=== PATIENT | female | born 1945 | race Caucasian/White ===

== ENCOUNTER 2020-11-30 07:48 | Outpatient (CLI) | payer MEDICARE, SELFPAY ==
--- NOTE | ~2020-11-30 | MM_ITS ---
EXAMINATION: MM screening [facility] BI w matheus HISTORY: Screening mammogram TECHNIQUE: Craniocaudal and mediolateral oblique 3-D tomosynthesis images were obtained and synthetic 2-D images were generated. CAD analysis was submitted and interpreted. COMPARISON: 11/25/2019, 11/22/2018, 11/15/2017 BREAST PARENCHYMAL COMPOSITION: There are scattered areas of fibroglandular density. FINDINGS: There is no evidence of suspicious mass, calcification, or architectural distortion to sugg est malignancy in either breast. There has been no suspicious interval change. IMPRESSION: 1. No mammographic evidence of malignancy. 2. Recommend routine screening mammography in one year. BI-RADS Category 1: Negative Reviewed, dictated and finalized at location A. RT SPECIALIST
== END 2020-11-30 07:49 | disposition home or self-care (01) ==
LOC: CHSIMG 07:51
PROVIDERS: PCP Internal Medicine; Visit Provider Internal Medicine
DX: Z12.31 Encounter for screening mammogram for malignant neoplasm of breast (principal)
CPT/HCPCS: 77063; 77067

== ENCOUNTER 2020-12-25 11:18 | Outpatient (CLI) | payer MEDICARE, SELFPAY ==
--- NOTE | ~2020-12-25 | XR_ITS ---
EXAMINATION: XR hip RT min 2V DATE: 12/25/2020 11:38 INDICATION: Right hip pain. TECHNIQUE: 2 views of right hip were obtained. COMPARISON: Right hip radiographs 04/02/2018 FINDINGS: Bone alignment is normal. No fracture. There is advanced right hip osteoarthritis. IMPRESSION: 1. Advanced right hip osteoarthritis with interval worsening. Reviewed, dictated and finalized at location A. AURANT MGR
== END 2020-12-25 11:19 | disposition home or self-care (01) ==
LOC: CHSIMG 11:20
PROVIDERS: PCP Internal Medicine; Visit Provider Internal Medicine
DX: M25.551 Pain in right hip (principal)
CPT/HCPCS: 73502

== ENCOUNTER 2021-06-25 08:24 | Outpatient (CLI) | payer MEDICARE, SELFPAY ==
[2021-06-25 08:38] LABS: Add Urine Microscopic? NO; Appearance Urine Clear (Clear); Basophils Absolute Auto 0.09 K/mm3 (0.00-0.10); Basophils Percent Auto 1.1 % (0.0-1.0); Bilirubin Urine Negative (Negative); Blood Urine Negative (Negative); Color Urine Light Yellow (Yellow); Eosinophils Absolute Auto 0.17 K/mm3 (0.02-0.50); Eosinophils Percent Auto 2.1 % (1.0-6.0); Glucose Urine UA Negative (Negative); Hematocrit 39.1 % (35.0-42.0); Hemoglobin 11.8 g/dL (11.7-13.8); Immature Granulocyte Absolute 0.01 K/mm3 (0.00-0.00); Immature Granulocyte Percent A 0.1 % (0.0-0.0); Ketones Urine Negative (Negative); Leukocyte Esterase Ur Negative LEU/UL (Negative); Lymphocytes Absolute Auto 2.35 K/mm3 (1.10-4.50); Lymphocytes Percent Auto 28.6 % (18.0-42.0); Mean Corpuscular HGB Conc 30.2 g/dL (32.0-36.0); Mean Corpuscular Hemoglobin 26.2 pg (27.0-31.0); Mean Corpuscular Volume 86.9 fL (78.0-102.0); Mean Platelet Volume 9.4 fl (9.2-11.8); Neutrophils Absolute Auto 4.7 K/mm3 (1.7-7.2); Neutrophils Percent Auto 57.1 % (50.0-70.0); Nitrate Urine Negative (Negative); Platelet Count Result 378 K/mm3 (150-420); Protein Urine Negative (Negative); Red Cell Distribution Width 14.1 % (11.6-14.4); Specific Grav Ur 1.015 (1.010-1.020); Urobilinogen Urine 0.2 mg/dL (0.2-1.0); White Blood Count 8.2 K/mm3 (4.8-10.8); pH Urine 6.5 (5.0-8.0)
[2021-06-25 09:33] LABS: Alanine Aminotransferase 26 U/L (14-59); Albumin Level 4.1 g/dL (3.4-5.0); Alkaline Phosphatase 90 U/L (46-116); Anion Gap 10 mmol/L (8-16); Aspartate Amino Transferase 16 U/L (15-37); Bilirubin,Total 0.3 mg/dL (0.00-1.00); Blood Urea Nitrogen 18 mg/dL (7-18); Calcium 9.2 mg/dL (8.5-10.1); Carbon Dioxide 28 mmol/L (21-32); Chloride 106 mmol/L (98-108); Cholesterol 206 mg/dL (0-200); Creatine Kinase 112 U/L (26-192); Estimated Glomerular Filt Rate > 60; Free T4 Free Thyroxine 0.79 ng/dL (0.76-1.46); Glucose 97 mg/dL (70-99); HDL Direct 62 mg/dL (40-60); LDL Cholesterol Calculated 125 mg/dL (<130); Osmolality Calculated 299 mOsm/kg (285-295); Potassium 4.6 mmol/L (3.5-5.1); Sodium 144 mmol/L (136-145); Thyroid Stimulating Hormone 2.92 uIU/mL (0.36-3.74); Total Protein 6.9 g/dL (6.4-8.2); Triglycerides 94 mg/dL (0-150)
[2021-06-28 15:15] LABS: Vitamin D 25 Hydroxy 48 ng/mL (30-100)
== END 2021-06-25 08:25 | disposition home or self-care (01) ==
LOC: CHSLAB 08:25
PROVIDERS: PCP Internal Medicine; Visit Provider Internal Medicine
DX: E03.9 Hypothyroidism, unspecified (principal); E78.5 Hyperlipidemia, unspecified; M81.0 Age-related osteoporosis without current pathological fracture
CPT/HCPCS: 36415; 80053; 80061; 81003; 82306; 82550; 84439; 84443; 85025

== ENCOUNTER 2021-07-22 08:48 | Outpatient (CLI) | payer MEDICARE, SELFPAY ==
--- NOTE | ~2021-07-22 | DEXA_ITS ---
Bone Density Report Name: Seble Nunez I Age: 75 Sex: Female Ethnicity: White Date of : 1945 Indication: osteopenia; height loss; Referring Provider: Jonathan Carreon Study: Bone densitometry was performed. Exam Date: July 22, 2021 Accession number: [id number] Bone Density: Region BMD T-score Z-score Classification AP Spine(L1-L4) 0.854 -1.8 0.6 Osteopenia Femoral Neck (Left) 0.578 -2.4 -0.4 Osteopenia Total Hip (Left) 0.811 -1.1 0.7 Osteopenia World Health Organization criteria for BMD impression classify patients as: Normal (T-score at or above -1.0), Osteopenia (T-score between -1.0 and -2.5), or Osteoporosis (T-score at or below -2.5). 10-year Fracture Risk(1): Major Osteoporotic Fracture 15% Hip Fracture 4.5% Reported Risk Factors: [place] (), Neck BMD=0.578, BMI=25.4 (1) FRAX(R) Version 3.08. Fracture probability calculated for an untreated patient. Fracture probability may be lower if the patient has received treatment. Previous Exams: Region Exam Age BMD T-score BMD Change BMD Change Date g/cm2 vs Baseline vs Previous AP Spine (L1-L4) 07/22/2021 75 0.854 -1.8 -0.057 (-6.2%) -0.057 (-6.2%) 08/29/2011 65 0.911 -1.2 Total Hip(Left) 07/22/2021 75 0.811 -1.1 -0.034 (-4.1%) -0.034 (-4.1%) 08/29/2011 65 0.845 -0.8 *Denotes significance at 95% confidence level, LSC for AP Spine = 0.022 g/cm2, LSC for Total Hip = 0.027 g/cm2 # Denotes dissimilar scan types or analysis methods Clinical Information Provided by Patient: Has used the following medications: Vitamin D Patient maximum height was 61 No regular weight bearing exercise Drinks caffeinated beverages Onset of menses at age 13 Number of children 3 Impression: The patient has low bone mass, based on the Left Femoral Neck T-score. The patient has an estimated ten-year risk of hip fracture of 4.5% and an estimated ten-year risk of major fracture of 15%, based on the WHO FRAX algorithm. No significant bone loss was observed. Discussion: BONE DENSITY IS LOW AT ONE OR MORE SKELETAL SITES. THE PATIENT'S BMD AND CLINICAL RISK FACTORS CONTRIBUTE TO THIS PATIENT'S INCREASED RISK OF FRACTURE. This patient's lowest T-score is low at one or more skeletal sites. It meets the World Health Organization's (WHO) criteria for ?low bone mass? (T-score between -1.0 and -2.5). The patient's 10-year risk of hip fracture as calculated by FRAX exceeds the threshold where pharmacological therapy is recommended by the National Osteoporosis Foundation
== END 2021-07-22 08:49 | disposition home or self-care (01) ==
LOC: CHSIMG 08:49
PROVIDERS: PCP Internal Medicine; Visit Provider Internal Medicine
DX: M81.0 Age-related osteoporosis without current pathological fracture (principal)
CPT/HCPCS: 77080

== ENCOUNTER 2021-08-16 08:11 | Outpatient (CLI) | payer MEDICARE, SELFPAY ==
[2021-08-16 08:23] VITALS: BP 110/63; PULSE 65; RESP 14; TEMP 36.8; O2SAT 98
[2021-08-16] MEDS: ZOLEDRONIC ACID 5 MG/100 ML 100 ML 300 MG IVPB (08:25)
[2021-08-16 08:33] VITALS: BMI 25.9
--- NOTE | 2021-08-16 08:54 | PC.NURSE ---
Patient here for IV Reclast infusion. Medication education given. No concerns voiced. IV Reclast administered. Tolerated well. Safe exit of hospital.
== END 2021-08-16 08:12 | disposition home or self-care (01) ==
LOC: CHSTREATRM 08:14
PROVIDERS: PCP Internal Medicine; Visit Provider Internal Medicine
DX: M81.0 Age-related osteoporosis without current pathological fracture (principal)
CPT/HCPCS: 96365; J3489

== ENCOUNTER 2021-10-14 07:48 | Outpatient (RCR) | payer MEDICARE, SELFPAY ==
--- NOTE | 2021-10-14 11:07 | PTOPEVAL ---
Thank you for referring Seble Nunez to [facility].? The patient is scheduled to be seen for therapy? ____x/week for ___ weeks. Please review, sign, date and return this plan of care TERENCE. I agree with and certify that the following plan of care is medically necessary. Referring Physician Date Admitting Provider: Attending Provider: LISA TOSCANO Referring Provider: *PT Outpatient Evaluation Start: 10/14/21 06:59 Freq: Status: Active Protocol: Document 10/14/21 06:59 ACR (Rec: 10/14/21 07:59 ACR [id number]) Therapy Assessment Status Assessment Status Assessment Status Evaluation Evaluation Information Problem Diagnosis R trochanteric bursitis Onset 04/08/21 Subjective Information Patient reports that she got a Query Text:As Reported By Patient/ hip replacement on 04/08/21. Family She states that she went to her 6 month check up and noticed that she had some tenderness to the lateral hip and was diagnosed with bursitis. Patient reports that her hip replacement went well back in March and has just recently noticed the pain for the past 2 and a half weeks. Patient states that ascending steps is painful for her and descending is okay. She states that squatting down to pick something up is difficult and she is fearful of falling even though she has not had any falls. She states that she has been doing some heavier lifting is difficult for her as well. She reports that the pain is in her L buttock down to the front of the knee. Patient states that her goal for therapy is to function without having difficulting going up and down the steps. 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
--- NOTE | 2021-10-28 07:59 | PTOPEVAL ---
Thank you for referring Seble Nunez to [facility].? The patient is scheduled to be seen for therapy? ____x/week for ___ weeks. Please review, sign, date and return this plan of care TERENCE. I agree with and certify that the following plan of care is medically necessary. Referring Physician Date Admitting Provider: Attending Provider: LISA TOSCANO Referring Provider: *PT Outpatient Evaluation Start: 10/14/21 06:59 Freq: Status: Active Protocol: Document 10/28/21 07:05 ACR (Rec: 10/28/21 07:59 ACR [email or web address]) Therapy Assessment Status Assessment Status Assessment Status Progress Evaluation Information Problem Diagnosis R trochanteric bursitis Onset 04/08/21 Subjective Information The patient reports that since Query Text:As Reported By Patient/ beginning therapy, she has Family been feeling a lot better and does not have the tenderness she use to have. She states that she still has difficulty going up the steps because the pain in the R hip is so bad. Pain Assessment Timing of Pain Assessment Timing of Pain Assessment Pre-Treatment Pain Scale Pain Scale Used Numeric (1 - 10) Self Report Pain Assessment Right Lateral Hip(s) Reported Pain Level 0 Greatest Pain Intensity 0 Pain Score Pain Score 0: Self Report Interventions Used Interventions Used By Clinicians Activity or ADL's,Exercise Lower Extremity Muscle Strength Testing Hip Strength Right Hip Flexion Strength 4+ Good + Hip Abduction Strength 3+ Fair + Left Hip Flexion Strength 4+ Good + Hip Abduction Strength 3+ Fair + Knee Strength Right Knee Flexion Strength 4 Good Knee Extension Strength 4 Good Left Knee Flexion Strength 5 Normal Knee Extension Strength 5 Normal Muscle Length Testing Muscle Length Testing Piriformis w/Hip Flexion >90 Degrees (R) Moderate Tightness,(L) Moderate Tightness Left Hamstring Length 20 Query Text:(90 - 90 Position) Right Hamstring Length 25 Query Text:(90 - 90 Position) Special Tests-Lower Extremity Hip Special Tests JUDITH Negative Left,Negative Right FADIR Negative Left,Negative Right Gait Assessment Gait Assessment Additional Ambulation Comments Patient ambulates into the clinic with minimal antalgia but continues to have B hip drop. General Exercise General Exercises Exercise Description - Ashvin mckeon
== END 2021-11-17 09:12 | disposition home or self-care (01) ==
LOC: CHSPT 07:48
PROVIDERS: PCP Internal Medicine
DX: M70.61 Trochanteric bursitis, right hip (principal)
CPT/HCPCS: 97110; 97161

== ENCOUNTER 2021-11-08 10:17 | Outpatient (CLI) | payer MEDICARE, SELFPAY ==
--- NOTE | ~2021-11-08 | XR_ITS ---
EXAMINATION: XR chest 2V EXAM DATE: 11/08/2021 10:42 INDICATION: Hypertension, abnormal EKG, syncope. TECHNIQUE: Frontal and lateral projections of the chest obtained and reviewed. Comparison is made to prior examination from 02/25/2019. FINDINGS: Some chronic appearing hyperinflation. Biapical scarring. The lungs are otherwise clear. T here are no pleural effusions. The cardiomediastinal silhouette is within normal limits. There is n o pneumothorax suspected. The bones and soft tissues are unremarkable. IMPRESSION: No acute cardiopulmonary findings. Reviewed, dictated and finalized at location B. MERCE PROJECT MANAGER
== END 2021-11-08 10:18 | disposition home or self-care (01) ==
LOC: CHSLAB 10:20 → CHSIMG 10:20
PROVIDERS: PCP Internal Medicine; Visit Provider Nurse Practitioner Family
DX: R94.31 Abnormal electrocardiogram [ECG] [EKG] (principal); I10 Essential (primary) hypertension
CPT/HCPCS: 71046

== ENCOUNTER 2022-06-14 07:12 | Outpatient (CLI) | payer MEDICARE, SELFPAY ==
--- NOTE | ~2022-06-14 | MM_ITS ---
EXAMINATION: MM screening [facility] BI w matheus HISTORY: Screening TECHNIQUE: Craniocaudal and mediolateral oblique 3-D tomosynthesis images were obtained and synthetic 2-D images were generated. CAD analysis was submitted and interpreted. COMPARISON: No prior mammogram is available for comparison at this institution. BREAST PARENCHYMAL COMPOSITION: Breast composed of scattered areas of fibroglandular density FINDINGS: There is no evidence of suspicious mass, calcification, or architectural distortion to sugg est malignancy in either breast. There has been no suspicious interval change. IMPRESSION: 1. No mammographic evidence of malignancy. 2. Recommend routine screening mammography in one year. BI-RADS Category 1: Negative Reviewed, dictated and finalized at location A.
== END 2022-06-14 07:13 | disposition home or self-care (01) ==
LOC: CHSIMG 07:13
PROVIDERS: PCP Internal Medicine; Visit Provider Internal Medicine
DX: Z12.31 Encounter for screening mammogram for malignant neoplasm of breast (principal)
CPT/HCPCS: 77063; 77067

== ENCOUNTER 2022-08-23 09:09 | Outpatient (CLI) | payer MEDICARE, SELFPAY ==
[2022-08-23] MEDS: ZOLEDRONIC ACID 5 MG/100 ML 100 ML 400 MG IVPB (09:25)
[2022-08-23 09:28] VITALS: BP 127/58; PULSE 78; RESP 14; TEMP 36.6; O2SAT 97; BMI 25.9
--- NOTE | 2022-08-23 09:37 | PC.NURSE ---
Patient here for yearly IV Reclast. Education given. No concerns voiced. IV Reclast administered. SEE MAR. Tolerated well. Safe exit of hospital.
== END 2022-08-23 09:10 | disposition home or self-care (01) ==
LOC: CHSTREATRM 09:12
PROVIDERS: PCP Internal Medicine; Visit Provider Internal Medicine
DX: M81.0 Age-related osteoporosis without current pathological fracture (principal)
CPT/HCPCS: 96374; J3489

== ENCOUNTER → 2022-10-10 07:32 | Outpatient (CLI) | payer MEDICARE, SELFPAY ==
--- NOTE | ~2022-10-10 | MR_ITS ---
EXAMINATION: MR brain/brain stem wo con DATE: 10/10/2022 08:30 INDICATION: Dizziness. TECHNIQUE: Magnetic resonance imaging (MRI) of the brain and brainstem was performed without intraven ous contrast. COMPARISON: Brain MRI 09/16/2015 FINDINGS: There is no intracranial hemorrhage, acute infarction, or abnormal intracranial mass lesion . There are scattered areas of nonspecific increased T2-weighted signal intensity in the cerebral whi te matter, which is within normal limits for the patient's age. The ventricles are normal in size. Th ere is mucosal thickening and fluid in the paranasal sinuses. There are likely changes of left ocular lens replacement surgery. There are trace bilateral mastoid effusions. IMPRESSION: 1. Normal aging brain. Reviewed, dictated and finalized at location A. 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 Normal aging brain.
== END ==
PROVIDERS: PCP Internal Medicine; Visit Provider Internal Medicine
DX: R42 Dizziness and giddiness (principal)
CPT/HCPCS: 70551

== ENCOUNTER 2023-04-04 08:55 | Outpatient (CLI) | payer MEDICARE, SELFPAY ==
--- NOTE | ~2023-04-04 | XR_ITS ---
XR knee LT 3V 04/04/2023 09:20 Indication: Left knee pain and swelling Procedure: 3 views left knee Comparison: No prior studies for comparison. Findings: There is mild osteoarthritis of the left knee. There is chondrocalcinosis. No fracture, sub luxation or dislocation. Osteopenia. No foreign bodies. Impression: 1: Chondrocalcinosis with mild osteoarthritis of the left knee. Reviewed, dictated and finalized at location L. Impression: 1: Chondrocalcinosis with mild osteoarthritis of the left knee.
== END 2023-04-04 08:56 | disposition home or self-care (01) ==
LOC: CHSIMG 08:58
PROVIDERS: PCP Internal Medicine; Visit Provider Internal Medicine
DX: M25.562 Pain in left knee (principal); M17.12 Unilateral primary osteoarthritis, left knee; M11.262 Other chondrocalcinosis, left knee
CPT/HCPCS: 73562

== ENCOUNTER → 2023-06-13 08:29 | Outpatient (CLI) | payer MEDICARE, SELFPAY ==
--- NOTE | ~2023-06-13 | MR_ITS ---
MRI of the left knee Clinical history: Pain Technique: Coronal proton density and proton density-weighted images, sagittal proton-density and T2 fat-sat images, and axial proton-density fat-saturated images were acquired. Findings: Anterior and posterior cruciate ligaments are intact. Medial collateral ligament and the la teral collateral ligament complex are intact. Popliteus tendon is intact. There is a large radial tear at the posterior root of the medial meniscus. No lateral meniscal tear e vident. There is mild chondromalacia of the medial patellar facet. Questionable very early developing subchon dral insufficiency fracture the medial femoral condyle with surrounding marrow edema. Lateral compart ment articular cartilage is well preserved. There is patchy moderate chondromalacia patella. Femoral trochlear cartilage is intact. Extensor mechanism is intact. There is minimal joint effusion, with small Diaz's cyst. Impression: Large radial tear at the posterior root of the medial meniscus. Suspected very early developing subchondral insufficiency fracture of the medial femoral condyle. Moderate chondromalacia patella. Small Diaz's cyst. Reviewed, dictated and finalized at location . Impression: Large radial tear at the posterior root of the medial meniscus. Suspected very early developing subchondral insufficiency fracture of the media l femoral condyle. Moderate chondromalacia patella. Small Diaz's cyst.
== END ==
PROVIDERS: PCP Internal Medicine; Visit Provider Internal Medicine
DX: M25.562 Pain in left knee (principal); M71.22 Synovial cyst of popliteal space [Baker], left knee; M22.42 Chondromalacia patellae, left knee; S83.242A Other tear of medial meniscus, current injury, left knee, initial encounter
CPT/HCPCS: 73721

== ENCOUNTER 2023-06-29 08:12 | Outpatient (CLI) | payer MEDICARE, SELFPAY ==
[2023-06-29 08:21] VITALS: BMI 26.9
[2023-06-29 08:26] VITALS: BP 139/64; PULSE 72; RESP 16; TEMP 36.4; O2SAT 98
[2023-06-29] MEDS: DENOSUMAB 60 MG/ML SYRINGE SUB-Q (08:31)
--- NOTE | 2023-06-29 08:39 | PC.NURSE ---
Patient here for Prolia injection. Education given. All questions/concerns answered. Prolia injection administered. SEE MAR. Tolerated well. Safe exit of hospital. Will return in 6 months for next if ok'd by Dr. Carreon.
== END 2023-06-29 08:13 | disposition home or self-care (01) ==
LOC: CHSTREATRM 08:14
PROVIDERS: PCP Internal Medicine; Visit Provider Internal Medicine
DX: M81.0 Age-related osteoporosis without current pathological fracture (principal)
CPT/HCPCS: 96372; J0897

== ENCOUNTER 2023-07-24 07:40 | Outpatient (CLI) | payer MEDICARE, SELFPAY ==
--- NOTE | ~2023-07-24 | DEXA_ITS ---
Bone Density Report Name: ABHIJEET MIX I Age: 77 Sex: Female Ethnicity: White Date of : 1945 Indication: postmenopausal; screening for osteoporosis; Referring Provider: Jonathan Carreon Study: Bone densitometry was performed. Exam Date: July 24, 2023 Accession number: [id number] Bone Density: Region BMD T-score Z-score Classification AP Spine(L1, L2, L3) 0.829 -1.7 0.7 Osteopenia Femoral Neck (Left) 0.586 -2.4 -0.2 Osteopenia Total Hip (Left) 0.829 -0.9 0.9 Normal World Health Organization criteria for BMD impression classify patients as: Normal (T-score at or above -1.0), Osteopenia (T-score between -1.0 and -2.5), or Osteoporosis (T-score at or below -2.5). 10-year Fracture Risk: FRAX not reported because: Treated for osteoporosis Clinical Information Provided by Patient: Is being treated for osteoporosis Has used the following medications: Prolia (i.e. denosumab), Vitamin D, Calcium Patient maximum height was 60 Menopause Age: 50 No regular weight bearing exercise Drinks caffeinated beverages Onset of menses at age 13 Number of children 3 Impression: The patient has low bone mass, based on the Left Femoral Neck T-score. Discussion: It is important to ask patients whether they are taking their medications and to encourage continued and appropriate compliance with their osteoporosis therapies to reduce fracture risk. It is also important to review their risk factors and encourage appropriate calcium and vitamin D intakes, exercise, fall prevention and other lifestyle measures. Follow-Up: Consider a repeat BMD and Vertebral Fracture Assessment (VFA) exam in 2 years or sooner if medically necessary, to reassess this patient's status. Reported by: Dr. Vikram Goldbreg on 07/24/2023 8:18:00 AM. Reviewed, dictated and finalized at location A. [facility]
--- NOTE | ~2023-07-24 | MM_ITS ---
EXAMINATION: MM screening [facility] BI w matheus HISTORY: Screening mammogram TECHNIQUE: Craniocaudal and mediolateral oblique 3-D tomosynthesis images were obtained and synthetic 2-D images were generated. CAD analysis was submitted and interpreted. COMPARISON: 06/14/2022, 11/30/2020, 11/25/2019 bilateral screening mammogram examinations BREAST PARENCHYMAL COMPOSITION: There are scattered areas of fibroglandular density. FINDINGS: There is no evidence of suspicious mass, calcification, or architectural distortion to sugg est malignancy in either breast. There has been no suspicious interval change. IMPRESSION: 1. No mammographic evidence of malignancy. 2. Recommend routine screening mammography in one year. BI-RADS Category 1: Negative Reviewed, dictated and finalized at location B.
== END 2023-07-24 07:41 | disposition home or self-care (01) ==
LOC: CHSIMG 07:41
PROVIDERS: PCP Internal Medicine; Visit Provider Internal Medicine
DX: Z12.31 Encounter for screening mammogram for malignant neoplasm of breast (principal); M81.0 Age-related osteoporosis without current pathological fracture; M85.89 Other specified disorders of bone density and structure, multiple sites
CPT/HCPCS: 77063; 77067; 77080

== ENCOUNTER 2023-09-14 07:28 | Outpatient (CLI) | payer MEDICARE, SELFPAY ==
[2023-09-14 08:17] LABS: Alanine Aminotransferase 11 U/L (14-59); Aspartate Amino Transferase 16 U/L (15-37); Cholesterol 195 mg/dL (0-200); Creatine Kinase 114 U/L (26-192); HDL Direct 64 mg/dL (40-60); LDL Cholesterol Calculated 107 mg/dL (<130); Triglycerides 118 mg/dL (0-150)
== END 2023-09-14 07:29 | disposition home or self-care (01) ==
LOC: CHSLAB 07:29
PROVIDERS: PCP Internal Medicine; Visit Provider Internal Medicine
DX: E78.2 Mixed hyperlipidemia (principal)
CPT/HCPCS: 36415; 80061; 82550; 84450; 84460

== ENCOUNTER 2023-12-09 07:05 | Outpatient (CLI) | payer MEDICARE, SELFPAY ==
[2023-12-09 07:29] LABS: Basophils Absolute Auto 0.06 K/mm3 (0.00-0.10); Basophils Percent Auto 0.9 % (0.0-1.0); Eosinophils Absolute Auto 0.13 K/mm3 (0.02-0.50); Eosinophils Percent Auto 1.9 % (1.0-6.0); Hematocrit 39.8 % (35.0-42.0); Hemoglobin 12.5 g/dL (11.7-13.8); Immature Granulocyte Absolute 0.02 K/mm3 (0.00-0.00); Immature Granulocyte Percent A 0.3 % (0.0-0.0); Lymphocytes Absolute Auto 2.46 K/mm3 (1.10-4.50); Lymphocytes Percent Auto 35.9 % (18.0-42.0); Mean Corpuscular HGB Conc 31.4 g/dL (32.0-36.0); Mean Corpuscular Hemoglobin 27.8 pg (27.0-31.0); Mean Corpuscular Volume 88.6 fL (78.0-102.0); Mean Platelet Volume 10.1 fl (9.2-11.8); Monocytes Absolute Auto 0.69 K/mm3 (0.10-0.90); Monocytes Percent Auto 10.1 % (2.0-11.0); Neutrophils Absolute Auto 3.5 K/mm3 (1.7-7.2); Neutrophils Percent Auto 50.9 % (50.0-70.0); Platelet Count Result 341 K/mm3 (150-420); Red Blood Count 4.49 M/mm3 (4.20-5.40); Red Cell Distribution Width 14.5 % (11.6-14.4); White Blood Count 6.9 K/mm3 (4.8-10.8)
[2023-12-09 07:44] LABS: Appearance Urine Clear (Clear); Bilirubin Urine Negative (Negative); Blood Urine Negative (Negative); Color Urine Light Yellow (Yellow); Glucose Urine UA Negative (Negative); Ketones Urine Negative (Negative); Leukocyte Esterase Ur Trace LEU/UL (Negative); Nitrate Urine Negative (Negative); Protein Urine Negative (Negative); Urobilinogen Urine 0.2 mg/dL (0.2-1.0)
[2023-12-09 07:45] LABS: Add Urine Microscopic? NO
[2023-12-09 08:13] LABS: Alanine Aminotransferase 27 U/L (14-59); Albumin Level 4.1 g/dL (3.4-5.0); Alkaline Phosphatase 51 U/L (46-116); Amylase 43 U/L (25-115); Anion Gap 9 mmol/L (8-16); Aspartate Amino Transferase 16 U/L (15-37); Bilirubin,Total 0.3 mg/dL (0.00-1.00); Blood Urea Nitrogen 22 mg/dL (7-18); Calcium 8.9 mg/dL (8.5-10.1); Carbon Dioxide 28 mmol/L (21-32); Chloride 104 mmol/L (98-108); Cholesterol 209 mg/dL (0-200); Creatine Kinase 64 U/L (26-192); Estimated Glomerular Filt Rate > 60; Free T3 1.87 pg/mL (2.18-3.98); Free T4 Free Thyroxine 0.82 ng/dL (0.76-1.46); Glucose 101 mg/dL (70-99); HDL Direct 69 mg/dL (40-60); LDL Cholesterol Calculated 117 mg/dL (<130); Lipase 36 U/L (16-77); Osmolality Calculated 295 mOsm/kg (285-295); Potassium 4.4 mmol/L (3.5-5.1); Sodium 141 mmol/L (136-145); Thyroid Stimulating Hormone 3.63 uIU/mL (0.36-3.74); Triglycerides 116 mg/dL (0-150)
== END 2023-12-09 07:06 | disposition home or self-care (01) ==
PROVIDERS: PCP Internal Medicine; Visit Provider Internal Medicine
DX: E78.2 Mixed hyperlipidemia (principal); E03.4 Atrophy of thyroid (acquired); R10.13 Epigastric pain
CPT/HCPCS: 36415; 80053; 80061; 81003; 82150; 82550; 83690; 84439; 84443; 84481; 85025

== ENCOUNTER 2024-01-08 08:26 | Outpatient (CLI) | payer MEDICARE, SELFPAY ==
[2024-01-08 08:34] VITALS: BP 119/63; PULSE 72; RESP 16; TEMP 36.4; O2SAT 97; BMI 26.9
[2024-01-08] MEDS: DENOSUMAB 60 MG/ML SYRINGE SUB-Q (08:41)
--- NOTE | 2024-01-08 08:43 | PC.NURSE ---
Patient here for q 6 month Prolia injection. Education given. No concerns voiced. Injection administered. SEE MAR. Tolerated well.
--- NOTE | 2024-01-08 08:54 | PC.NURSE ---
Safe exit of hosptial per self/ambulatory
== END 2024-01-08 08:49 | disposition home or self-care (01) ==
PROVIDERS: PCP Internal Medicine; Visit Provider Internal Medicine
DX: M81.0 Age-related osteoporosis without current pathological fracture (principal)
CPT/HCPCS: 96372; J0897

== ENCOUNTER 2024-01-10 17:11 | Outpatient (CLI) | payer MEDICARE, SELFPAY ==
[2024-01-10 17:25] LABS: Basophils Absolute Auto 0.07 K/mm3 (0.00-0.10); Basophils Percent Auto 0.7 % (0.0-1.0); Eosinophils Absolute Auto 0.11 K/mm3 (0.02-0.50); Eosinophils Percent Auto 1.1 % (1.0-6.0); Hematocrit 39.3 % (35.0-42.0); Hemoglobin 12.3 g/dL (11.7-13.8); Immature Granulocyte Absolute 0.02 K/mm3 (0.00-0.00); Immature Granulocyte Percent A 0.2 % (0.0-0.0); Lymphocytes Absolute Auto 3.13 K/mm3 (1.10-4.50); Lymphocytes Percent Auto 32.4 % (18.0-42.0); Mean Corpuscular HGB Conc 31.3 g/dL (32.0-36.0); Mean Corpuscular Volume 86.4 fL (78.0-102.0); Mean Platelet Volume 9.6 fl (9.2-11.8); Monocytes Absolute Auto 0.96 K/mm3 (0.10-0.90); Monocytes Percent Auto 9.9 % (2.0-11.0); Neutrophils Absolute Auto 5.4 K/mm3 (1.7-7.2); Neutrophils Percent Auto 55.7 % (50.0-70.0); Platelet Count Result 343 K/mm3 (150-420); Red Blood Count 4.55 M/mm3 (4.20-5.40); Red Cell Distribution Width 14.5 % (11.6-14.4); White Blood Count 9.7 K/mm3 (4.8-10.8)
[2024-01-10 17:36] LABS: D Dimer 0.43 mg/L (0.19-0.50)
[2024-01-10 17:51] LABS: Alanine Aminotransferase 28 U/L (14-59); Albumin Level 4.1 g/dL (3.4-5.0); Alkaline Phosphatase 59 U/L (46-116); Anion Gap 10 mmol/L (8-16); Aspartate Amino Transferase 23 U/L (15-37); Bilirubin,Total 0.2 mg/dL (0.00-1.00); Blood Urea Nitrogen 21 mg/dL (7-18); Calcium 8.9 mg/dL (8.5-10.1); Carbon Dioxide 28 mmol/L (21-32); Chloride 102 mmol/L (98-108); Creatine Kinase 111 U/L (26-192); Estimated Glomerular Filt Rate > 60; Glucose 96 mg/dL (70-99); NT Pro B Type Natriuretic Pept 109 pg/mL (0-450); Osmolality Calculated 293 mOsm/kg (285-295); Potassium 3.9 mmol/L (3.5-5.1); Sodium 140 mmol/L (136-145); Total Protein 7.5 g/dL (6.4-8.2); Troponin I 4.5 ng/L (0.00-60.4)
== END 2024-01-10 17:12 | disposition home or self-care (01) ==
LOC: CHSLAB 17:12
PROVIDERS: PCP Internal Medicine; Visit Provider Internal Medicine
DX: R06.00 Dyspnea, unspecified (principal); R07.9 Chest pain, unspecified
CPT/HCPCS: 36415; 80053; 82550; 82553; 83880; 84484; 85025; 85380

== ENCOUNTER 2024-04-09 15:33 | Outpatient (CLI) | payer MEDICARE, SELFPAY ==
[2024-04-09 15:53] LABS: Appearance Urine Clear (Clear); Basophils Absolute Auto 0.07 K/mm3 (0.00-0.10); Basophils Percent Auto 0.9 % (0.0-1.0); Bilirubin Urine Negative (Negative); Blood Urine Negative (Negative); Color Urine Yellow (Yellow); Eosinophils Absolute Auto 0.09 K/mm3 (0.02-0.50); Eosinophils Percent Auto 1.1 % (1.0-6.0); Glucose Urine UA Negative (Negative); Hematocrit 38.5 % (35.0-42.0); Immature Granulocyte Absolute 0.03 K/mm3 (0.00-0.00); Immature Granulocyte Percent A 0.4 % (0.0-0.0); Ketones Urine Trace (Negative); Leukocyte Esterase Ur Trace (Negative); Lymphocytes Percent Auto 34.4 % (18.0-42.0); Mean Corpuscular HGB Conc 31.2 g/dL (32-36); Mean Corpuscular Volume 86.5 fL (78.0-102.0); Mean Platelet Volume 9.6 fl (9.2-11.8); Monocytes Absolute Auto 0.89 K/mm3 (0.10-0.90); Monocytes Percent Auto 10.9 % (2.0-11.0); Neutrophils Absolute Auto 4.26 K/mm3 (1.70-7.20); Neutrophils Percent Auto 52.3 % (50.0-70.0); Nitrate Urine Negative (Negative); Platelet Count Result 347 K/mm3 (150-420); Protein Urine Negative (Negative); Red Blood Count 4.45 M/mm3 (4.20-5.40); Specific Grav Ur 1.015 (1.010-1.020); Urobilinogen Urine 0.2 mg/dL (0.2-1.0); White Blood Count 8.1 K/mm3 (4.8-10.8)
[2024-04-09 16:03] LABS: Add Urine Microscopic? YES; Bacteria Urine Trace /hpf; RBC Urine None seen /hpf (0-2); Squamous Epithelial Cell Urine Few /hpf (Few); WBC Urine 0-3 /hpf (0-3)
[2024-04-09 16:10] LABS: Alanine Aminotransferase 31 U/L (14-59); Albumin Level 4.3 g/dL (3.4-5.0); Alkaline Phosphatase 40 U/L (46-116); Amylase 35 U/L (25-115); Anion Gap 9 mmol/L (4-12); Aspartate Amino Transferase 22 U/L (15-37); Bilirubin,Total 0.3 mg/dL (0.00-1.00); Blood Urea Nitrogen 16 mg/dL (7-18); Calcium 9.7 mg/dL (8.5-10.1); Carbon Dioxide 30 mmol/L (21-32); Chloride 101 mmol/L (98-108); Estimated Glomerular Filt Rate > 60; Glucose 90 mg/dL (70-99); Lipase 29 U/L (16-77); Osmolality Calculated 291 mOsm/kg (285-295); Potassium 4.4 mmol/L (3.5-5.1); Sodium 140 mmol/L (136-145)
== END 2024-04-09 15:34 | disposition home or self-care (01) ==
LOC: CHSLAB 15:35
PROVIDERS: PCP Internal Medicine; Visit Provider Internal Medicine
DX: R10.9 Unspecified abdominal pain (principal)
CPT/HCPCS: 36415; 80053; 81001; 82150; 83690; 85025

== ENCOUNTER 2024-04-10 12:42 | Outpatient (CLI) | payer MEDICARE, SELFPAY ==
--- NOTE | ~2024-04-10 | CT_ITS ---
CT of the Abdomen and Pelvis: Indication: Abdominal pain Technique: 2.5 mm axial scans were obtained through the abdomen and pelvis following intravenous adm inistration of 100 cc of Omnipaque 350. Dose reduction technique was used on this scan by utilizing a utomated exposure control and iterative reconstruction technique. The dose-length product (DLP) was 3 89.04 mGy-cm. Findings: Scans through the lung bases demonstrate focal scarring in the right middle lobe. The liver, spleen, pancreas, gallbladder, adrenals and kidneys are within normal limits. No evidence of aortic aneurysm. No lymphadenopathy. No bowel obstruction or bowel wall thickening. There is no evidence to suggest acute appendicitis. Images through the pelvis are degraded by streak artifact from right hip arthroplasty. Urinary bladde r unremarkable. No pelvic mass seen. No ascites. Impression: No significant abnormalities seen. Reviewed, dictated and finalized at [facility]. Impression: No significant abnormalities seen.
== END 2024-04-10 12:43 | disposition home or self-care (01) ==
LOC: CHSIMG 12:43
PROVIDERS: PCP Internal Medicine; Visit Provider Internal Medicine
DX: R10.9 Unspecified abdominal pain (principal)
CPT/HCPCS: 74177; Q9967

== ENCOUNTER 2024-06-09 11:46 | Emergency (ER) | payer MEDICARE, SELFPAY ==
[2024-06-09 11:50] VITALS: BP 148/77; PULSE 69; RESP 20; TEMP 36.4; O2SAT 98
--- NOTE | 2024-06-09 12:46 | ED.GENADULT ---
HPI - General Adult General Chief complaint: Skin/Abscess/Foreign Body Stated complaint: RASH History of Present Illness HPI narrative: Seble is a 78F that presented to the ED with a rash. It started after she did 4 hours of weed eating a few days ago. She has been putting triamcinolone cream on it but it was getting worse and she started getting some facial swelling. No fevers, chills, vomiting, CP or dyspnea. Related Data Home Medications Medication Instructions Recorded Confirmed aspirin 81 mg tablet,delayed 81 mg PO DAILY 08/16/21 01/08/24 release citalopram 10 mg tablet 10 mg PO DAILY 08/16/21 01/08/24 levothyroxine 100 mcg tablet 100 mcg PO DAILY 08/16/21 01/08/24 lovastatin 40 mg tablet 40 mg PO QPM 06/29/23 01/08/24 Allergies Allergy/AdvReac Type Severity Reaction Status Date / Time No Known Allergies Allergy Verified 08/16/21 08:23 Review of Systems Review of Systems: All systems reviewed & are unremarkable except as noted in HPI and below Exam Const: General: cooperative, healthy appearing, comfortable, no acute distress, well developed, alert, awake and Physically active Orientation/consciousness: oriented to person, oriented to place and oriented to time HENMT: Head: normal to inspection, normocephalic and atraumatic Ears: hearing grossly normal bilaterally and external ears normal Face/Nose/Sinus: Normal external nose present Eyes: General: appearance normal, both eyes and all related structures Periorbital: periorbital findings normal Sclera: sclerae normal Pupils: Equal, round and reactive pupils present Neck: Neck: normal visual inspection Chest: Chest palpation & inspection: normal inspection of the chest Resp: Effort & Inspection: normal respiratory effort, able to speak in complete sentences and no respiratory distress Auscultation: clear to auscultation bilaterally Cardio: Jugular venous distension: no JVD Rate: regular rate Rhythm: regular rhythm GI: Inspection: normal to inspection GI Palp: Yes Soft to palpation Auscultation: normal bowel sounds Skin: General skin exam: normal color and no rashes or lesions noted Other: erythematous maculopapular rash over her trunk and upper extremities. It was present on her face as well Neuro: General: oriented to person, oriented to place and oriented to time Cranial nerves: Yes Equal, round and reactive pupils present Extrem: General: normal to inspection Course Course Emergency Course: Given IM steroids in the ED Vital Signs Vital signs: Vital Signs Temperature 97.5 F L 06/09/24 11:50 Pulse Rate 06/09/24 11:50 Respiratory Rate 06/09/24 11:50 Blood Pressure 148/77 H 06/09/24 11:50 Pulse Oximetry 98 06/09/24 11:50 Oxygen Delivery Room Air 06/09/24 11:50 Temperature 97.5 F L 06/09/24 11:50 Pulse Rate 06/09/24 11:50 Respiratory Rate 06/09/24 11:50 Blood Pressure 148/77 H 06/09/24 11:50 Pulse Oximetry 98 06/09/24 11:50 Oxygen Delivery Room Air 06/09/24 11:50 Medical Decision Making Vital Signs Vital Signs: Vital Signs Temperature 97.5 F L 06/09/24 11:50 Pulse Rate 06/09/24 11:50 Respiratory Rate 06/09/24 11:50 Blood Pressure 148/77 H 06/09/24 11:50 Pulse Oximetry 98 06/09/24 11:50 Oxygen Delivery Room Air 06/09/24 11:50 Temperature 97.5 F L 06/09/24 11:50 Pulse Rate 06/09/24 11:50 Respiratory Rate 06/09/24 11:50 Blood Pressure 148/77 H 06/09/24 11:50 Pulse Oximetry 98 06/09/24 11:50 Oxygen Delivery Room Air 06/09/24 11:50 Discharge Plan Discharge Clinical Impression: Contact dermatitis Patient Disposition: Home, Self-Care Condition: Stable Instructions: Contact Dermatitis (ED) Prescriptions: New betamethasone valerate 0.1 % cream 1 applic topical BID PRN (Reason: rash) Qty: 15 0RF No Action citalopram 10 mg Tablet 10 mg PO DAILY aspirin [Adult Aspirin EC Low Str
[2024-06-09] MEDS: methylPREDNISolone SOD SUCC 125 MG VIAL IM (12:50)
[2024-06-09 13:01] VITALS: BP 142/72; PULSE 73; RESP 20; O2SAT 98
== END 2024-06-09 13:32 | disposition home or self-care (01) ==
PROVIDERS: Emergency Provider Family Medicine
DX: L25.9 Unspecified contact dermatitis, unspecified cause (principal)
CPT/HCPCS: 96372; 99283; J2919

== ENCOUNTER 2024-06-22 07:13 | Outpatient (CLI) | payer MEDICARE, SELFPAY ==
[2024-06-22 07:57] LABS: Hematocrit 36.2 % (35.0-42.0); Hemoglobin 11.9 g/dL (11.7-13.8); Mean Corpuscular HGB Conc 32.9 g/dL (32-36); Mean Corpuscular Hemoglobin 32.3 pg (27.0-31.0); Mean Corpuscular Volume 98.4 fL (78.0-102.0); Mean Platelet Volume 9.4 fl (9.2-11.8); Platelet Count Result 204 K/mm3 (150-420); Red Blood Count 3.68 M/mm3 (4.20-5.40); Red Cell Distribution Width 13.2 % (11.6-14.4); White Blood Count 6.3 K/mm3 (4.8-10.8)
[2024-06-22 08:22] LABS: Appearance Urine Clear (Clear); Bilirubin Urine Negative (Negative); Blood Urine Negative (Negative); Color Urine Light Yellow (Yellow); Glucose Urine UA Negative (Negative); Hemoglobin A1C 5.8 % (<5.7); Ketones Urine Negative (Negative); Leukocyte Esterase Ur Negative (Negative); Nitrate Urine Negative (Negative); Protein Urine Negative (Negative); Urobilinogen Urine 0.2 mg/dL (0.2-1.0)
[2024-06-22 08:25] LABS: Add Urine Microscopic? NO
[2024-06-22 08:29] LABS: Alanine Aminotransferase 23 U/L (14-59); Albumin Level 3.9 g/dL (3.4-5.0); Alkaline Phosphatase 47 U/L (46-116); Anion Gap 9 mmol/L (4-12); Aspartate Amino Transferase 15 U/L (15-37); Bilirubin,Total 0.4 mg/dL (0.00-1.00); Blood Urea Nitrogen 16 mg/dL (7-18); Calcium 8.8 mg/dL (8.5-10.1); Carbon Dioxide 26 mmol/L (21-32); Chloride 104 mmol/L (98-108); Cholesterol 188 mg/dL (0-200); Creatine Kinase 87 U/L (26-192); Estimated Glomerular Filt Rate > 60; Free T3 1.64 pg/mL (2.18-3.98); Free T4 Free Thyroxine 0.75 ng/dL (0.76-1.46); Glucose 95 mg/dL (70-99); HDL Direct 61 mg/dL (40-60); LDL Cholesterol Calculated 102 mg/dL (<130); Osmolality Calculated 289 mOsm/kg (285-295); Potassium 3.8 mmol/L (3.5-5.1); Sodium 139 mmol/L (136-145); Triglycerides 125 mg/dL (0-150)
[2024-06-25 03:33] LABS: Vitamin D 25 Hydroxy 56 ng/mL (30-100)
== END 2024-06-22 07:14 | disposition home or self-care (01) ==
LOC: CHSLAB 07:15
PROVIDERS: PCP Internal Medicine; Visit Provider Internal Medicine
DX: R73.01 Impaired fasting glucose (principal); E78.2 Mixed hyperlipidemia; E03.4 Atrophy of thyroid (acquired); M81.0 Age-related osteoporosis without current pathological fracture
CPT/HCPCS: 36415; 80053; 80061; 81003; 82306; 82550; 83036; 84439; 84443; 84481; 85027

== ENCOUNTER 2024-07-08 09:24 | Outpatient (CLI) | payer MEDICARE, SELFPAY ==
--- NOTE | ~2024-07-08 | XR_ITS ---
2 VIEWS sternoclavicular joints Ordering provider: Jonathan Carreon MD History: . Pain L Sternoclavicular Joint,RADIATES THRU CLAVICLE,NKI . Comparison: None. FINDINGS: BONES: No sternal fracture. JOINTS: Sternoclavicular joints is well maintained without dislocation. SOFT TISSUES: Normal. IMPRESSION: No definite abnormality. If still suspicious CT is advised. Reviewed, dictated and finalized at location A.
== END 2024-07-08 09:25 | disposition home or self-care (01) ==
LOC: CHSIMG 09:27
PROVIDERS: PCP Internal Medicine; Visit Provider Internal Medicine
DX: M25.59 Pain in other specified joint (principal)
CPT/HCPCS: 71130

== ENCOUNTER 2024-07-16 09:13 | Outpatient (CLI) | payer MEDICARE, SELFPAY ==
[2024-07-16 09:21] VITALS: BMI 26.9
[2024-07-16 09:24] VITALS: BP 135/81; PULSE 78; RESP 16; TEMP 36.5; O2SAT 97
[2024-07-16] MEDS: DENOSUMAB 60 MG/ML SYRINGE SUB-Q (09:30)
--- NOTE | 2024-07-16 09:36 | PC.NURSE ---
Patient here for Prolia injection. Education given. All concerns answered. Injection administered. SEE MAR/patient care noted. Tolerated well.
== END 2024-07-16 09:14 | disposition home or self-care (01) ==
PROVIDERS: PCP Internal Medicine; Visit Provider Internal Medicine
DX: M81.0 Age-related osteoporosis without current pathological fracture (principal)
CPT/HCPCS: 96372; J0897

== ENCOUNTER 2024-09-03 07:37 | Outpatient (CLI) | payer MEDICARE, SELFPAY ==
--- NOTE | ~2024-09-03 | MM_ITS ---
EXAMINATION: MM screening [facility] BI w matheus HISTORY: Screening TECHNIQUE: Craniocaudal and mediolateral oblique 3-D tomosynthesis images were obtained and synthetic 2-D images were generated. CAD analysis was submitted and interpreted. COMPARISON: Comparison to multiple prior studies sequentially, with oldest reviewed study dated 10/28. BREAST PARENCHYMAL COMPOSITION: Not dense: There are scattered areas of fibroglandular density. FINDINGS: There is no evidence of suspicious mass, calcification, or architectural distortion to sugg est malignancy in either breast. There has been no suspicious interval change. IMPRESSION: 1. No mammographic evidence of malignancy. 2. Recommend routine screening mammography in one year. BI-RADS Category 1: Negative Reviewed, dictated and finalized at location B.
== END 2024-09-03 07:38 | disposition home or self-care (01) ==
LOC: CHSIMG 07:39
PROVIDERS: PCP Internal Medicine; Visit Provider Internal Medicine
DX: Z12.31 Encounter for screening mammogram for malignant neoplasm of breast (principal)
CPT/HCPCS: 77063; 77067

== ENCOUNTER 2025-01-01 08:10 | Outpatient (CLI) | payer MEDICARE, SELFPAY ==
[2025-01-01 08:21] LABS: Hematocrit 40.3 % (35.0-42.0); Hemoglobin 12.5 g/dL (11.7-13.8); Mean Corpuscular Hemoglobin 27.2 pg (27.0-31.0); Mean Corpuscular Volume 87.6 fL (78.0-102.0); Mean Platelet Volume 9.8 fl (9.2-11.8); Platelet Count Result 316 K/mm3 (150-420); Red Cell Distribution Width 14.7 % (11.6-14.4); White Blood Count 6.3 K/mm3 (4.8-10.8)
[2025-01-01 08:22] LABS: Add Urine Microscopic? YES; Appearance Urine Clear (Clear); Bilirubin Urine Negative (Negative); Blood Urine Negative (Negative); Color Urine Light Yellow (Yellow); Glucose Urine UA Negative (Negative); Ketones Urine Negative (Negative); Leukocyte Esterase Ur Trace (Negative); Nitrate Urine Negative (Negative); Protein Urine Negative (Negative); Specific Grav Ur 1.015 (1.010-1.020); Urobilinogen Urine 0.2 mg/dL (0.2-1.0); pH Urine 5.5 (5.0-8.0)
[2025-01-01 08:30] LABS: RBC Urine None seen /hpf (0-2); WBC Urine None seen /hpf (0-3)
[2025-01-01 08:31] LABS: Bacteria Urine Rare /hpf; Squamous Epithelial Cell Urine Rare /hpf (Few)
[2025-01-01 09:16] LABS: Alanine Aminotransferase 23 U/L (14-59); Alkaline Phosphatase 51 U/L (46-116); Anion Gap 7 mmol/L (4-12); Aspartate Amino Transferase 15 U/L (15-37); Bilirubin,Total 0.4 mg/dL (0.00-1.00); Blood Urea Nitrogen 15 mg/dL (7-18); Carbon Dioxide 30 mmol/L (21-32); Chloride 106 mmol/L (98-108); Cholesterol 185 mg/dL (0-200); Estimated Glomerular Filt Rate > 60; Free T4 Free Thyroxine 0.88 ng/dL (0.76-1.46); Glucose 98 mg/dL (70-99); HDL Direct 62 mg/dL (40-60); LDL Cholesterol Calculated 101 mg/dL (<130); Osmolality Calculated 296 mOsm/kg (285-295); Potassium 4.7 mmol/L (3.5-5.1); Sodium 143 mmol/L (136-145); Thyroid Stimulating Hormone 0.37 uIU/mL (0.36-3.74); Total Protein 6.7 g/dL (6.4-8.2); Triglycerides 112 mg/dL (0-150)
[2025-01-02 15:30] LABS: Creatine Kinase 176 U/L (26-192)
== END 2025-01-01 08:11 | disposition home or self-care (01) ==
LOC: CHSLAB 08:12
PROVIDERS: PCP Internal Medicine; Visit Provider Internal Medicine
DX: I10 Essential (primary) hypertension (principal); E78.2 Mixed hyperlipidemia; K21.00 Gastro-esophageal reflux disease with esophagitis, without bleeding; R10.84 Generalized abdominal pain; E03.4 Atrophy of thyroid (acquired)
CPT/HCPCS: 36415; 80053; 80061; 81001; 82550; 84439; 84443; 85027

== ENCOUNTER 2025-01-21 09:08 | Outpatient (CLI) | payer MEDICARE, SELFPAY ==
[2025-01-21] MEDS: DENOSUMAB 60 MG/ML SYRINGE SUB-Q (09:24)
[2025-01-21 09:27] VITALS: BP 129/77; PULSE 78; RESP 14; TEMP 36.4; O2SAT 97; BMI 26.9
--- NOTE | 2025-01-21 09:33 | PC.NURSE ---
Patient here for her every 6 month Prolia injection. Education given. No concerns voiced. Reports haven't had problem with these yet. Injection administered. see MAR/patient care notes. Tolerated well.
--- OUTSIDE RECORDS SUMMARY | 2025-01-21 09:55 | XMS_ITS | Encounter Summary ---
Author Organization [facility] Address [facility] [place] [address] Care Team Providers Care Soft Crab Shedder Name Role Phone Jonathan Careron MD Primary Care Provider Encounter Details Date Type Department Care Team (Late Contact Info) Description 03/09/2021 Prep for Procedure [facility] Pre-Admission Testing [address] [place], [place] [id number] Geronimo Hurd MD [address] [place] [address] [phone] Social History Tobacco Use Types Packs/Day Years Used Date Smoking Tobacco: Never Smokeless Tobacco: Never Alcohol Use Standard Drinks/Week Comments Never 0 (1 standard drink = 0.6 oz pur e alcohol) AUDIT-C Answer Date Recorded Q1: How often do you have a drink containing alc ohol? Never 02/08/2021 Average Number of Drinks Not on file 021 Frequency of Binge Drinking Not on file 01/25 Comments Unknown Sex and Gender Information Value Date Recorded Sex Assigned at Not on file Legal Sex Female 10:01 PM CDT Gender Identity Not on file Sexual Orientation Not on file COVID-19 Exposure Response Date Recorded In the last month, have you been in contact with someone who was confirmed or suspected to have Coronavirus / COVID-19? No / Unsure 03/10/2021 11:29 AM CDT documented as of this encounter Plan of Treatment Upcoming Encounters Date Type Department Care Team (Late Contact Info) Description 01/24/2025 1:00 PM RADIOLOGY INTERVENTIONAL PHYSICIAN Office Visit [facility] [place] [address] [place] [address] MD [address] [place] [address] documented as of this encounter Results * PRE-SURGICAL/PRE-PROCEDURE CORONAVIRUS (COVID 19) (04/05/2021 9:00 AM CDT) CORONAVIRUS SARS COV 2 PCR (RESP) NOT DETECTED NOT DETECTED 04/06/2021 2:50 PM CDT [facility] Comment: A Not Detected (negative) test result for this test means that SARS-CoV-2 RNA was not present in the specimen above the limit of detection. A negative result does not rule out the possibility of COVID-19 and should not be used as the sole basis for treatment or patient management decisions. If COVID-19 is still suspected, based on exposure history together with other clinical findings, re-testing should be considered in consultation with public health authorities. Laboratory test results should always be considered in the context of clinical observations and epidemiological data in making a final diagnosis and patient management decisions. This patient specimen was tested using an FDA EUA pooling method. Patient specimens with low viral loads may not be detected in sample pools due to the decreased sensitivity of pooled testing. Please review the Fact Sheets and FDA authorized labeling available for health care providers and patients using the following websites: https://www.Space Race.com/home/Covid-19/HCP/NAAT/fact-sheet2 https://www.Space Race.com/home/Covid-19/Patients/NAAT/ fact-sheet2 This test has been authorized by the FDA under an Emergency Use Authorization (EUA) for use by authorized laboratories. Due to the current public health emergency, [employer] is receiving a high volume of samples from a wide variety of swabs and media for COVID-19 testing. In order to serve patients during this public health crisis, samples from appropriate clinical sources are being tested. Negative test results derived from specimens received in non-commercially manufactured viral collection and transport media, or in media and sample collection kits not yet authorized by FDA for COVID-19 testing should be cautiously evaluated and the patient potentially subjected to extra precautions such as additional clinical monitoring, including collection of an additional specimen. Methodology: Nucleic Acid Amplification Test (NAAT) includes RT-PCR or TMA Additional information about COVID-19 can be found at the [employer] website: www.PlumChoice.Element Power/Covid19. Test performed at [facility] [address] [place] [address] Director: LINK LEACH DO,MPH FIRST TEST NO 04/05/2021 10:33 AM CDT [facility] EMPLOYED IN HEALTHCARE NO 04/05/2021 10:33 AM CDT [facility] SYMPTOMATIC DEFINED BY CDC NO 04/05/2021 10:33 AM CDT [facility] DATE OF SYMPTOM ONSET NO 04/05/2021 10:52 AM CDT [facility] HOSPITALIZATION STATUS NO 04/05/2021 10:33 AM CDT [facility] PATIENT IN ICU NO 04/05/2021 10:33 AM CDT [facility] RESIDENT OF [facility] NO 04/05/2021 10:33 AM CDT [facility] NO 04/05/2021 10:52 AM CDT [facility] PATIENT'S RACE WHITE OR 04/05/2021 10:33 AM CDT [facility] ETHNICITY NONHISPANIC 04/05/2021 10:33 AM CDT [facility] SOURCE (QST) NASOPHARYNGEAL SWAB 04/05/2021 10:33 AM CDT [facility] NASOPHARYNGEAL SWAB / Unknown 04/05/2021 9:00 AM CDT us Geronimo Hurd MD MICROBIOLOGY - GENERAL ORDER FLY Final Result [facility] [address] [place] [address], [facility] [address] [place] [address], documented in this encounter Visit Diagnoses Diagnosis Preop examination- Primary Preoperative examination, unspecified documented in this encounter Additional Health Concerns Infection Onset Date Last Indicated Resolved Time COVID-19 Rule Out 04/05/2021 04/05/2021 04/06/2021 2:50 PM CDT documented as of this encounter Care Teams Soft Crab Shedder Relationship Specialty Start Date End Date Jonathan Carreon MD [address] [place] [address] PCP - General INTERNAL MEDICINE 12/30/20 documented as of this encounter
--- OUTSIDE RECORDS SUMMARY | 2025-01-21 09:55 | XMS_ITS | Clinical Summary ---
Author Organization [facility] Address [address] [place] [address] Care Team Providers Care Freelance Digital Project Manager Name Role Phone Jonathan Carreon MD Primary Care Provider [phone] Allergies No known active allergies Medications citalopram 10 MG tablet Take 1 tablet (10 mg total) by mouth. 1 Active levothyroxine 100 MCG tabletIndicatio ns:thyroid Take 1 tablet (100 mcg total) by mouth every morning. Indications: thyroid 1/2 tab mon thru mon one tab sat and monday 1 Active Multiple Vitamins-Minera ls (CENTRUM SILVER OR)Indications: mvi Take 1 tablet by mouth daily. Indications: mvi 1 Active vitamin D3, cholecalciferol , 1000 UNIT Tab tabletIndicatio ns:vitamin Take 1 tablet (25 mcg total) by mouth daily. Indications: vitamin 1 Active aspirin EC (ECOTRIN) 81 MG tablet Take 1 tablet (81 mg total) by mouth daily. Active amoxicillin (AMOXIL) 500 MG capsule TAKE FOUR CAPSULES BY MOUTH ONE HOUR BEFORE DENTAL APPOINTMENT 3 Active lovastatin (MEVACOR) 40 MG tablet Take 1 tablet (40 mg total) by mouth every evening. 3 Active pantoprazole EC (PROTONIX) 40 MG tablet Take 1 tablet (40 mg total) by mouth daily. 3 Active Active Problems Problem Noted Date Diagnosed Date LLQ pain 06/28/2024 Status post hip replacement, right 04/08/2021 Resolved Problems Problem Noted Date Diagnosed Date Resolved Date Osteoarthritis of right hip 04/08/2021 04/09/2021 Encounters Date Type Department Care Team Description 12/18/2024 Telephone [facility] Multispecialty Care - [address], [address] [place] [phone] MD Question from Last 3 Months Family History Medical History Relation Comments No Known Problems Brother 1 Cancer Brother 2 Arthritis Father CHF Father Cancer Father Heart Disease Father Arthritis Mother Heart Disease Mother Arthritis Sister 1 Cancer Sister 2 Lung Disease Son Relation Status Comments Brother 1 Alive Brother 2 Daughter 1 Alive Daughter 2 Alive Father Mother Alive Sister 1 Alive Sister 2 Son Alive Social History Tobacco Use Types Packs/Day Years Used Date Smoking Tobacco: Never Passive Smoke Exposure: Never Smokeless Tobacco: Never Tobacco Cessation:Counseling Given: No Comments:Never Smoked Alcohol Use Standard Drinks/Week Comments Never 0 (1 standard drink = 0.6 oz pur e alcohol) none AUDIT-C Answer Date Recorded Q1: How often do you have a drink containing alc ohol? Never 02/08/2021 Average Number of Drinks Not on file 021 Frequency of Binge Drinking Not on file 01/25 PHQ-2 Answer Date Recorded Patient Health Questionnaire-2 Score 0 06/28/2024 Comments No Sex and Gender Information Value Date Recorded Sex Assigned at Not on file Legal Sex Female 10:01 PM CDT Gender Identity Not on file Sexual Orientation Not on file Last Filed Vital Signs Vital Sign Reading Time Taken Comments Blood Pressure 98/71 08/28/2024 9:15 AM CDT Pulse 74 08/28/2024 8:27 AM CDT Temperature 36 C (96.8 F) 08/28/2024 8:27 AM CDT Respiratory Rate 18 08/28/2024 9:00 AM CDT Oxygen Saturation 99% 08/28/2024 9:15 AM CDT Inhaled Oxygen Concentration - - Weight 62.6 kg (138 lb) 08/28/2024 7:02 AM CDT Height 152.4 cm (5') 08/28/2024 7:02 AM CDT Body Mass Index 26.95 08/28/2024 7:02 AM CDT Plan of Treatment Upcoming Encounters Date Type Department Care Team (Late st Contact Info) Description 01/24/2025 1:00 PM TAX RECORD CLERK Office Visit [facility] G[facility] [place] [id number] [place] [address] [address] MD [address] [place] [address] Health Maintenance Due Date Last Done Comments Hepatitis C 1963 DTaP, Tdap and Td Vaccines ( 1 - Tdap) 1964 Annual Medicare Wellness Visit 2011 Dexa Scan (General) 2011 Pneumococcal Vaccine: 65+ Years (2 of 2 - PPSV23 or PCV20) 09/11/2016 09/11/2015 RSV Immunization or 60+ Years (1 - 1-dose 75+ series) 2021 COVID-19 Vaccine (3 - 2023-2 5 season) 2024 01/20/2021, 12/30/2020 Influenza Adult (#1) 2024 PHQ-2 (Physician [place]) 11/27/2024 06/28/2024 Zoster Vaccines Completed 08/04/2019, 06/01/2019 Colorectal Cancer Screening Colonoscopy (10 Years) Discontinued 08/28/2024 Meningococcal B Vaccine Aged Out No l onger eligible based on patient's age to complete this topic Meningococcal Vaccine Aged Out No kavya carolynn eligible based on patient's age to complete this topic RSV Immunizations Under 20 Months Aged Out No longer eligible based on patient's age to complete this topic Goals Goal Patient Goal Type Associated Problems Recent Progress Patient-Stated? Author Health - patient able to perform ADLs independently General No Sherrie Magallanes, RN Medical Devices Implanted Type Area Steam Plant Operator Device Identifier Shelf Expiration Date Model / Serial / Lot Cup Acetabular Depuy 50mm - [id number] Implanted:Qt y: 1 on 04/08/2021 by Geronimo Hurd MD at [facility] Hip Components Right: Acetabulum DEPUY [id number] 02/24/2031 [id number] / / [id number] Liner Depuy Acet Altrx Neut 32 X 50 - [id number] Implanted:Qt y: 1 on 04/08/2021 by Geronimo Hurd MD at [facility] Hip Components Right: Acetabulum DEPUY [id number] 02/24/2026 [id number] / / [id number] Actis Duofix Hip Prosthesis Implanted:Qt y: 1 on 04/08/2021 by Geronimo Hurd MD at [facility] Hip Components Right: Femur DEPUY [employer] - A GABRIELLE & GAB[employer]ELLE [id number] 01/24/2030 1010-10-30 0 / / [id number] Head Depuy Femoral Delta 32mm +1 - [id number] Implanted:Qt y: 1 on 04/08/2021 by Geronimo Hurd MD at [facility] Hip Components Right: Femur DEPUY [id number] 02/24/2026 [id number] / / [id number] Screw Lee Depuy 6.5 X 20mm - [id number] Implanted:Qt y: 1 on 04/08/2021 by Geronimo Hurd MD at [facility] Screw Right: Acetabulum DEPUY [id number] 01/24/2031 [id number] / / [id number] Screw Lee Depuy 6.5 X 20mm - [id number] Implanted:Qt y: 1 on 04/08/2021 by Geronimo Hurd MD at [facility] Screw Right: Acetabulum DEPUY [id number] 10/26/2029 [id number] / / [id number] Insurance Advance Directives * Full Code (Latest Code Status on File) Date Activated Date Inactivated Comments 04/29/2021 8:06 AM 08/28/2024 6:33 AM * Full Code Date Activated Date Inactivated Comments 04/08/2021 10:42 AM 04/10/2021 4:38 PM Care Teams Freelance Digital Project Manager Relationship Specialty Start Date End Date Jonathan Carreon MD [address] [place] [address] PCP - General INTERNAL MEDICINE 12/30/20
== END 2025-01-21 09:09 | disposition home or self-care (01) ==
PROVIDERS: PCP Internal Medicine; Visit Provider Internal Medicine
DX: M81.0 Age-related osteoporosis without current pathological fracture (principal)
CPT/HCPCS: 96372; J0897

== ENCOUNTER 2025-02-24 06:59 | Outpatient (CLI) | payer MEDICARE, SELFPAY ==
--- NOTE | ~2025-02-24 | XR_ITS ---
XR abdomen/kub 1V 02/24/2025 07:45 INDICATION: Recent colonoscopy examination. Abdominal pain. TECHNIQUE: KUB COMPARISON: CT dated 04/10/2024 FINDINGS: Bowel gas pattern is normal. There is no evidence of free air, mass, organomegaly, ascites or obstruction. No renal stones identified. There is a coarse calcification left upper abdomen, poss ibly calcified lymph node. Moderate colonic fecal loading. The bones appear intact. There is a right total hip arthroplasty. IMPRESSION: 1: No acute abdominal abnormality identified. Reviewed, dictated and finalized at location A.
--- NOTE | ~2025-02-24 | DEXA_ITS ---
Bone Density Report Name: ABHIJEET MIX I Age: 79 Sex: Female Ethnicity: White Date of : 1945 Indication: osteopenia; monitoring treatment; Referring Provider: Jonathan Carreon Study: Bone densitometry was performed. Exam Date: February 24, 2025 Accession number: [id number] Bone Density: Region BMD T-score Z-score Classification AP Spine(L1, L2, L3) 0.887 -1.2 1.3 Osteopenia Femoral Neck (Left) 0.622 -2.0 0.2 Osteopenia Total Hip (Left) 0.816 -1.0 0.9 Normal World Health Organization criteria for BMD impression classify patients as: Normal (T-score at or above -1.0), Osteopenia (T-score between -1.0 and -2.5), or Osteoporosis (T-score at or below -2.5). 10-year Fracture Risk: FRAX not reported because: Treated for osteoporosis Previous Exams: Region Exam Age BMD T-score BMD Change BMD Change Date g/cm2 vs Baseline vs Previous AP Spine (L1-L3) 02/24/2025 79 0.887 -1.2 0.057 (6.9%)* 0.057 (6.9%)* 07/24/2023 77 0.829 -1.7 Total Hip(Left) 02/24/2025 79 0.816 -1.0 -0.013 (-1.6%) -0.013 (-1.6%) 07/24/2023 77 0.829 -0.9 *Denotes significance at 95% confidence level, LSC for AP Spine = 0.022 g/cm2, LSC for Total Hip = 0.027 g/cm2 Clinical Information Provided by Patient: Is being treated for osteoporosis Has used the following medications: Prolia (i.e. denosumab) Patient maximum height was 60 Menopause Age: 50 No regular weight bearing exercise Drinks caffeinated beverages Onset of menses at age 13 Number of children 3 Impression: The patient has low bone mass, based on the Left Femoral Neck T-score. No significant bone loss was observed. Discussion: PATIENT UNDER TREATMENT WITH NO SIGNIFICANT BMD LOSS SINCE LAST EXAM. In an untreated patient, BMD typically declines with age. A lack of decline or gain is usually a sign that treatment is efficacious and fracture risk is reduced. It is important to ask patients whether they are taking their medications and to encourage continued and appropriate compliance with their osteoporosis therapies to reduce fracture risk. It is also important to review their risk factors and encourage appropriate calcium and vitamin D intakes, exercise, fall prevention and other lifestyle measures. Follow-Up: Consider a repeat BMD and Vertebral Fracture Assessment (VFA) exam in 2 years or sooner if medically necessary, to reassess this patient's status. Reported by: MASON on 02/24/2025 7:46:00 AM. Reviewed, dictated and finalized at location A.
--- OUTSIDE RECORDS SUMMARY | 2025-02-24 07:02 | XMS_ITS | Encounter Summary ---
Author Organization [facility] Address [facility] [place] [address] Care Team Providers Care School Transportation Supervisor Name Role Phone Jonathan Carreon MD Primary Care Provider [phone] Encounter Details Date Type Department Care Team (Late st Contact Info) Description 03/09/2021 Prep for Procedure [facility] Pre-Admission Testing [address] [place], [place] [id number] Geronimo Hurd MD [address] [place] [phone] Social History Tobacco Use Types Packs/Day Years [...] as of this encounter Plan of Treatment Not on file documented as of this encounter Results * PRE-SURGICAL/PRE-PROCEDURE CORONAVIRUS (COVID 19) (04/05/2021 9:00 AM CDT) CORONAVIRUS SARS COV 2 PCR (RESP) NOT DETECTED NOT DETECTED 04/06/2021 2:50 PM CDT [facility] Comment: A Not Detected (negative) test result [...] providers and patients using the following websites: https://www.[employer]omsons Online [employer].Nirvanix/home/Covid-19/HCP/NAAT/fact-sheet2 https://www.[employer].Nirvanix/home/Covid-19/Patients/NAAT/ fact-sheet2 This test has been authorized by the FDA under an Emergency Use Authorization (EUA) for use by authorized laboratories. Due to the current public health emergency, [employer] is receiving a high volume of samples [...] about COVID-19 can be found at the [employer] website: www.[employer].Nirvanix/Covid19. Test performed at [facility] [place] [address] [place] [address] Director: LINK LEACH DO,MPH FIRST TEST NO 04/05/2021 10:33 AM CDT [facility] EMPLOYED IN HEALTHCARE NO 04/05/2021 10:33 AM CDT [facility] SYMPTOMATIC DEFINED BY CDC NO 04/05/2021 10:33 AM CDT [facility] DATE OF SYMPTOM ONSET NO 04/05/2021 10:52 AM CDT [facility] HOSPITALIZATION STATUS NO 04/05/2021 10:33 AM CDT [facility] PATIENT IN ICU NO 04/05/2021 10:33 AM CDT [facility] RESIDENT OF [facility] NO 04/05/2021 10:33 AM CDT [facility] NO 04/05/2021 10:52 AM CDT [facility] PATIENT'S RACE WHITE OR 04/05/2021 10:33 AM CDT [facility] ETHNICITY NONHISPANIC 04/05/2021 10:33 AM CDT [facility] SOURCE (QST) NASOPHARYNGEAL SWAB 04/05/2021 10:33 AM CDT [facility] NASOPHARYNGEAL SWAB / Unknown 04/05/2021 9:00 AM CDT us Geronimo Hurd MD MICROBIOLOGY - GENERAL ORDER FLY Final Result [facility] [address] [place] [address], [place] [phone] [facility] [address] [place] [address], [place] documented in this encounter Visit Diagnoses Diagnosis Preop examination- Primary Preoperative examination, unspecified documented in this encounter Additional Health Concerns Infection Onset Date Last Indicated Resolved Time COVID-19 Rule Out 04/05/2021 04/05/2021 04/06/2021 2:50 PM CDT documented as of this encounter Care Teams School Transportation Supervisor Relationship Specialty Start Date End Date Jonathan Carreon MD [address] [place] [address] PCP - General INTERNAL MEDICINE 12/30/20 documented as of this encounter
--- OUTSIDE RECORDS SUMMARY | 2025-02-24 07:02 | XMS_ITS | Clinical Summary ---
Author Organization [facility] Address [address] [place] [address] Care Team Providers Care Paste Mixing Supervisor Name Role Phone Jonathan Carreon MD Primary Care Provider [phone] Allergies No known active allergies Medications citalopram [...] Encounters Date Type Department Care Team Description 01/24/2025 1:00 PM SHERIFF SERGEANT Office Visit [facility] Gastroenterology Specialty Clinic [address] [address] MD Follow Up (Follow up) 01/24/2025 Travel 12/18/2024 Telephone [facility] Multispecialty Care - [address], [address] [place] [address] MD Question from Last 3 [...] Date Recorded Patient Health Questionnaire-2 Score 0 01/24/2025 Comments No Sex and Gender Information Value Date Recorded Sex Assigned at Not on file Legal Sex Female 10:01 PM CDT Gender Identity Not on file Sexual Orientation Not on file Last Filed Vital Signs Vital Sign Reading Time Taken Comments Blood Pressure 122/74 01/24/2025 12:55 PM SHERIFF SERGEANT Pulse 74 01/24/2025 12:55 PM SHERIFF SERGEANT Temperature 36.7 C (98 F) 01/24/2025 12:55 PM SHERIFF SERGEANT Respiratory Rate 18 01/24/2025 12:55 PM SHERIFF SERGEANT Oxygen Saturation 97% 01/24/2025 12:55 PM SHERIFF SERGEANT Inhaled Oxygen Concentration - - Weight 64.9 kg (143 lb) 01/24/2025 12:55 PM SHERIFF SERGEANT Height 152.4 cm (5') 01/24/2025 12:55 PM SHERIFF SERGEANT Body Mass Index 27.93 01/24/2025 12:55 PM SHERIFF SERGEANT Plan of Treatment Health Maintenance Due Date Last Done Comments [...] 2024 01/20/2021, 12/30/2020 Influenza Adult (#1) 2024 Zoster Vaccines Completed 08/04/2019, 06/01/2019 Colorectal Cancer Screening Colonoscopy (10 Years) Discontinued 08/28/2024 PHQ-2 (Physician [place]) Completed 01/24/2025 Meningococcal B Vaccine Aged Out No l [...] Magallanes, RN Medical Devices Implanted Type Area Airborne And Air Delivery Specialist Device Identifier Shelf Expiration Date Model / Serial / Lot Cup Acetabular Depuy 50mm - [id number] Implanted:Qt y: 1 on 04/08/2021 by Geronimo Hurd MD at [facility] Hip Components Right: Acetabulum DEPUY [id number] 02/24/2031 [id number] / / [id number] Liner Depuy Acet Altrx Neut 32 X 50 - [id number] Implanted:Qt y: 1 on 04/08/2021 by Geronimo Hurd MD at [facility] Hip Components Right: Acetabulum DEPUY [id number] 02/24/2026 [id number] / / [id number] Actis Duofix Hip Prosthesis Implanted:Qt y: 1 on 04/08/2021 by Geronimo Hurd MD at [facility] Hip Components Right: Femur [employer]PUY [employer] - [employer] GAB[employer]LE [employer] G[employer]LE [id number] 01/24/2030 1010-10-30 0 / / [id number] Head Depuy Femoral Delta 32mm +1 - [id number] Implanted:Qt y: 1 on 04/08/2021 by Geronimo Hurd MD at [facility] Hip Components Right: Femur DEPUY [id number] 02/24/2026 [id number] / / [id number] Screw [place] Depuy 6.5 X 20mm - [id number] Implanted:Qt y: 1 on 04/08/2021 by Geronimo Hurd MD at [facility] Screw Right: Acetabulum DEPUY [id number] 01/24/2031 [id number] / / [id number] Screw [place] Depuy 6.5 X 20mm - [id number] Implanted:Qt y: 1 on 04/08/2021 by Geronimo Hurd MD at [facility] Screw Right: Acetabulum DEPUY [id number] 10/26/2029 [id number] / / [id number] Insurance Advance Directives * Full Code (Latest Code Status on File) Date Activated Date Inactivated Comments 04/29/2021 8:06 AM 08/28/2024 6:33 AM * Full Code Date Activated Date Inactivated Comments 04/08/2021 10:42 AM 04/10/2021 4:38 PM Care Teams Paste Mixing Supervisor Relationship Specialty Start Date End Date Jonathan Carreon MD [address] [place] [address] PCP - General INTERNAL MEDICINE 12/30/20
== END 2025-02-24 07:00 | disposition home or self-care (01) ==
LOC: CHSIMG 07:00
PROVIDERS: PCP Internal Medicine; Visit Provider Internal Medicine
DX: M85.89 Other specified disorders of bone density and structure, multiple sites (principal); R10.12 Left upper quadrant pain
CPT/HCPCS: 74018; 77080

== ENCOUNTER 2025-03-21 09:34 | Outpatient (CLI) | payer MEDICARE, SELFPAY ==
--- NOTE | ~2025-03-21 | XR_ITS ---
Clinical Indication: Chest pain PA and lateral views of the chest: Comparison: 11/08/2021 Findings: The lungs are clear, without evidence of focal consolidation or pleural effusion. Cardiome diastinal silhouette is within normal limits. Bones and soft tissues are unremarkable. Impression: Normal chest. Reviewed, dictated and finalized at location . Impression: Normal chest.
--- OUTSIDE RECORDS SUMMARY | 2025-03-21 09:45 | XMS_ITS | Clinical Summary ---
Author Organization [facility] Address [address] [place] [address] Care Team Providers Care Unit Secretary Name Role Phone Jonathan Carreon MD Primary Care Provider [phone] Allergies No known active allergies Medications citalopram [...] Department Care Team Description 01/24/2025 1:00 PM ADMINISTRATIVE CLERK Office Visit [facility] [address] [address] MD Follow Up (Follow up) 01/24/2025 Travel from Last 3 Months Family History Medical [...] Comments Blood Pressure 122/74 01/24/2025 12:55 PM ADMINISTRATIVE CLERK Pulse 74 01/24/2025 12:55 PM ADMINISTRATIVE CLERK Temperature 36.7 C (98 F) 01/24/2025 12:55 PM ADMINISTRATIVE CLERK Respiratory Rate 18 01/24/2025 12:55 PM ADMINISTRATIVE CLERK Oxygen Saturation 97% 01/24/2025 12:55 PM ADMINISTRATIVE CLERK Inhaled Oxygen Concentration - - Weight 64.9 kg (143 lb) 01/24/2025 12:55 PM ADMINISTRATIVE CLERK Height 152.4 cm (5') 01/24/2025 12:55 PM ADMINISTRATIVE CLERK Body Mass Index 27.93 01/24/2025 12:55 PM ADMINISTRATIVE CLERK Plan of Treatment Health Maintenance Due Date Last Done Comments Hepatitis C 1963 DTaP, Tdap and Td Vaccines ( 1 - Tdap) 1964 Annual Medicare Wellness Visit 2011 Dexa Scan (General) 2011 Pneumococcal Vaccine: 50+ Years (2 of 2 - PPSV23) 09/11/2016 09/11/2015 RSV Immunization or 60+ Years (1 - 1-dose 75+ series) 2021 COVID-19 Vaccine (3 - 2023-2 5 season) 2024 01/20/2021, 12/30/2020 Zoster Vaccines Completed 08/04/2019, 06/01/2019 Colorectal Cancer Screening Colonoscopy (10 Years) Discontinued 08/28/2024 PHQ-2 (Physician [place]) Completed 01/24/2025 Meningococcal B Vaccine Aged Out [...] Magallanes, RN Medical Devices Implanted Type Area Atomic Fuel Assembler Device Identifier Shelf Expiration Date Model / Serial / Lot Cup Acetabular Depuy 50mm - [id number] Implanted:Qt y: 1 on 04/08/2021 by Geronimo Hurd MD at [facility] Hip Components Right: Acetabulum DEPUY [id number] 02/24/2031 [id number] / / [id number] Liner Depuy Acet Altrx Neut 32 X 50 - [id number] Implanted:Qt y: 1 on 04/08/2021 by Geronimo Hurd MD at [facility] Hip Components Right: Acetabulum DEPUY [id number] 02/24/2026 [id number] / / [id number] Actis Duofix Hip Prosthesis Implanted:Qt y: 1 on 04/08/2021 by Geronimo Hurd MD at [facility] Hip Components Right: Femur DEPUY [employer] - A GABRIELLE & GABRIELLE [id number] 01/24/2030 1010-10-30 0 / / [id number] Head Depuy Femoral Delta 32mm +1 - [id number] Implanted:Qt y: 1 on 04/08/2021 by Geronimo Hurd MD at [facility] Hip Components Right: Femur DEPUY [id number] 02/24/2026 [id number] / / [id number] Screw [place] Depuy 6.5 X 20mm - [id number] Implanted:Qt y: 1 on 04/08/2021 by Geronimo Hurd MD at [facility] Screw Right: Acetabulum DEPUY [id number] 01/24/2031 [id number] / / [id number] Screw [place] Depuy 6.5 X 20mm - [id number] Implanted:Qt y: 1 on 04/08/2021 by Geronimo Hurd MD at [facility] Screw Right: Acetabulum DEPUY [id number] 10/26/2029 [id number] / / [id number] [place] [address] Advance Directives * Full Code (Latest Code Status on File) Date Activated Date Inactivated Comments 04/29/2021 8:06 AM 08/28/2024 6:33 AM * Full Code Date Activated Date Inactivated Comments 04/08/2021 10:42 AM 04/10/2021 4:38 PM Care Teams Unit Secretary Relationship Specialty Start Date End Date Jonathan Carreon MD [address] [place] [address] PCP - General INTERNAL MEDICINE 12/30/20
--- OUTSIDE RECORDS SUMMARY | 2025-03-21 09:45 | XMS_ITS | Encounter Summary ---
Author Organization [facility] Address [facility] [place] [address] Care Team Providers Care Industrial Management Teacher Name Role Phone Jonathan Carreon MD Primary Care Provider [phone] Encounter Details Date Type Department Care Team (Late st Contact Info) Description 03/09/2021 Prep for Procedure [place] Pre-Admission Testing [address] [place], [place] [id number] Geronimo Hurd MD [address] [place] [address] [phone] Social History Tobacco Use Types Packs/Day Years [...] DETECTED NOT DETECTED 04/06/2021 2:50 PM CDT [facility] Comment: A Not Detected (negative) test result [...] providers and patients using the following websites: https://www.GTRAN.The Muse/home/Covid-19/HCP/NAAT/fact-sheet2 https://www.G[employer].The Muse/home/Covid-19/Patients/NAAT/ fact-sheet2 This test has been authorized by the FDA under an Emergency Use Authorization (EUA) for use by authorized laboratories. Due to the current public health emergency, [employer] is receiving a high volume of samples [...] about COVID-19 can be found at the [employer] website: www.LimeRoad.The Muse/Covid19. Test performed at [facility] [place] [address] [place] [address] Director: LINK LEACH DO,MPH FIRST TEST NO 04/05/2021 10:33 AM CDT [facility] EMPLOYED IN HEALTHCARE NO 04/05/2021 10:33 AM CDT [facility] SYMPTOMATIC DEFINED BY CDC NO 04/05/2021 10:33 AM CDT [facility] DATE OF SYMPTOM ONSET NO 04/05/2021 10:52 AM CDT [facility] HOSPITALIZATION STATUS NO 04/05/2021 10:33 AM CDT [facility] PATIENT IN ICU NO 04/05/2021 10:33 AM CDT [facility] RESIDENT OF [facility] NO 04/05/2021 10:33 AM CDT [facility] NO 04/05/2021 10:52 AM CDT [facility] PATIENT'S RACE WHITE OR 04/05/2021 10:33 AM CDT [facility] ETHNICITY NONHISPANIC 04/05/2021 10:33 AM CDT [facility] SOURCE (QST) NASOPHARYNGEAL SWAB 04/05/2021 10:33 AM CDT [facility] NASOPHARYNGEAL SWAB / Unknown 04/05/2021 9:00 AM CDT us Geronimo Hurd MD MICROBIOLOGY - GENERAL ORDER FLY Final Result [facility] [address] [place] [address], [place] [phone] [facility] [address] [place] [address], [place] documented in this encounter Visit Diagnoses Diagnosis Preop examination- Primary Preoperative examination, unspecified documented in this encounter Additional Health Concerns Infection Onset Date Last Indicated Resolved Time COVID-19 Rule Out 04/05/2021 04/05/2021 04/06/2021 2:50 PM CDT documented as of this encounter Care Teams Industrial Management Teacher Relationship Specialty Start Date End Date Jonathan Carreon MD [address] [place] [address] PCP - General INTERNAL MEDICINE 12/30/20 documented as of this encounter
[2025-03-21 10:19] LABS: Hematocrit 38.2 % (35.0-42.0); Hemoglobin 11.6 g/dL (11.7-13.8); Mean Corpuscular HGB Conc 30.4 g/dL (32-36); Mean Corpuscular Hemoglobin 26.9 pg (27.0-31.0); Mean Corpuscular Volume 88.4 fL (78.0-102.0); Mean Platelet Volume 9.7 fl (9.2-11.8); Platelet Count Result 333 K/mm3 (150-420); Red Blood Count 4.32 M/mm3 (4.20-5.40); Red Cell Distribution Width 14.8 % (11.6-14.4); White Blood Count 6.2 K/mm3 (4.8-10.8)
[2025-03-21 10:50] LABS: Alanine Aminotransferase 25 U/L (14-59); Albumin Level 3.8 g/dL (3.4-5.0); Alkaline Phosphatase 64 U/L (46-116); Amylase 43 U/L (25-115); Anion Gap 9 mmol/L (4-12); Aspartate Amino Transferase 14 U/L (15-37); Bilirubin,Total 0.3 mg/dL (0.00-1.00); Blood Urea Nitrogen 18 mg/dL (7-18); Calcium 8.9 mg/dL (8.5-10.1); Carbon Dioxide 28 mmol/L (21-32); Chloride 104 mmol/L (98-108); Creatine Kinase 167 U/L (26-192); Estimated Glomerular Filt Rate > 60; Glucose 105 mg/dL (70-99); Lipase 33 U/L (16-77); Osmolality Calculated 293 mOsm/kg (285-295); Potassium 4.5 mmol/L (3.5-5.1); Sodium 141 mmol/L (136-145); Total Protein 7.2 g/dL (6.4-8.2); Troponin I 5.3 ng/L (0.00-60.4)
[2025-03-21 13:40] LABS: Immature Reticulocyte Fraction 11.6 % (2.0-16.52); Reticulocyte Percent 0.99 % (0.50-1.50); Reticulocytes Absolute 0.04 M/mm3 (0.02-0.10)
[2025-03-21 14:21] LABS: Ferritin 37 ng/mL (8-252); Iron 53 ug/dL (50-170)
== END 2025-03-21 09:35 | disposition home or self-care (01) ==
LOC: CHSLAB 09:36
PROVIDERS: PCP Internal Medicine; Visit Provider Internal Medicine
DX: R07.9 Chest pain, unspecified (principal); R10.11 Right upper quadrant pain; D64.9 Anemia, unspecified
CPT/HCPCS: 36415; 71046; 80053; 82150; 82550; 82553; 82728; 83540; 83690; 84484; 85027; 85046

== ENCOUNTER 2025-03-26 08:13 | Outpatient (CLI) | payer MEDICARE, SELFPAY ==
--- NOTE | ~2025-03-26 | US_ITS ---
Limited Abdominal Sonogram: Real-time sonographic imaging of the right upper quadrant was performed. Clinical History: Right upper quadrant pain Findings: The liver appears normal with no evidence of mass lesion or bile duct dilatation. Main por kristina vein demonstrates normal direction of flow. The gallbladder is partially distended, and appears n ormal with no evidence of gallstone or wall thickening. The common bile duct measures 5 mm. The visu alized pancreas, aorta, and IVC are unremarkable. Impression: No significant abnormality seen. Reviewed, dictated and finalized at location M. Impression: No significant abnormality seen.
--- OUTSIDE RECORDS SUMMARY | 2025-03-26 08:18 | XMS_ITS | Encounter Summary ---
Author Organization [facility] Address [facility] [place] [address] Care Team Providers Care Family Member Caretaker Name Role Phone Jonathan Carreon MD Primary Care Provider [phone] Encounter Details Date Type Department Care Team (Late st Contact Info) Description 03/09/2021 Prep for Procedure [place] Pre-Admission Testing [address] [place], [place] [id number] Geronimo Hurd MD [address] [place] [phone] Social History Tobacco Use Types Packs/Day Years [...] DETECTED NOT DETECTED 04/06/2021 2:50 PM CDT [facility] Comment: A Not Detected (negative) test result [...] providers and patients using the following websites: https://www.Fanli website.[employer]home/Covid-19/HCP/NAAT/fact-sheet2 https://www.Fanli website.[employer]home/Covid-19/Patients/NAAT/ fact-sheet2 This test has been authorized by the FDA under an Emergency Use Authorization (EUA) for use by authorized laboratories. Due to the current public health emergency, [employer] is receiving a high volume of samples [...] about COVID-19 can be found at the [employer] website: www.Werkadoo.[employer]./Covid19. Test performed at [facility] [place] [address] [place] [address] Director: LINK LEACH DO,MPH FIRST TEST NO 04/05/2021 10:33 AM CDT [facility] EMPLOYED IN HEALTHCARE NO 04/05/2021 10:33 AM CDT [facility] SYMPTOMATIC DEFINED BY CDC NO 04/05/2021 10:33 AM CDT [facility] DATE OF SYMPTOM ONSET NO 04/05/2021 10:52 AM CDT [facility] HOSPITALIZATION STATUS NO 04/05/2021 10:33 AM CDT [facility] PATIENT IN ICU NO 04/05/2021 10:33 AM CDT [facility] RESIDENT OF [facility] NO 04/05/2021 10:33 AM CDT [facility] NO 04/05/2021 10:52 AM CDT [facility] PATIENT'S RACE WHITE OR 04/05/2021 10:33 AM CDT [facility] ETHNICITY NONHISPANIC 04/05/2021 10:33 AM CDT [facility] SOURCE (QST) NASOPHARYNGEAL SWAB 04/05/2021 10:33 AM CDT [facility] NASOPHARYNGEAL SWAB / Unknown 04/05/2021 9:00 AM CDT us Geronimo Hurd MD MICROBIOLOGY - GENERAL ORDER FLY Final Result [facility] [address] [place] [address], [place] [phone] [facility] [address] [place] [address], [place] documented in this encounter Visit Diagnoses Diagnosis Preop examination- Primary Preoperative examination, unspecified documented in this encounter Additional Health Concerns Infection Onset Date Last Indicated Resolved Time COVID-19 Rule Out 04/05/2021 04/05/2021 04/06/2021 2:50 PM CDT documented as of this encounter Care Teams Family Member Caretaker Relationship Specialty Start Date End Date Jonathan Carreon MD [address] [place] [address] PCP - General INTERNAL MEDICINE 12/30/20 documented as of this encounter
--- OUTSIDE RECORDS SUMMARY | 2025-03-26 08:18 | XMS_ITS | Clinical Summary ---
Author Organization [facility] Address [address] [place] [address] Care Team Providers Care Computer Game Tester Name Role Phone Jonathan Carreon MD Primary Care Provider Allergies No known active allergies Medications citalopram [...] Department Care Team Description 01/24/2025 1:00 PM OIL AND GAS FIELD TECHNICIAN Office Visit [facility] [address] [address] MD Follow Up [...] Comments Blood Pressure 122/74 01/24/2025 12:55 PM OIL AND GAS FIELD TECHNICIAN Pulse 74 01/24/2025 12:55 PM OIL AND GAS FIELD TECHNICIAN Temperature 36.7 C (98 F) 01/24/2025 12:55 PM OIL AND GAS FIELD TECHNICIAN Respiratory Rate 18 01/24/2025 12:55 PM OIL AND GAS FIELD TECHNICIAN Oxygen Saturation 97% 01/24/2025 12:55 PM OIL AND GAS FIELD TECHNICIAN Inhaled Oxygen Concentration - - Weight 64.9 kg (143 lb) 01/24/2025 12:55 PM OIL AND GAS FIELD TECHNICIAN Height 152.4 cm (5') 01/24/2025 12:55 PM OIL AND GAS FIELD TECHNICIAN Body Mass Index 27.93 01/24/2025 12:55 PM OIL AND GAS FIELD TECHNICIAN Plan of Treatment Health Maintenance Due Date [...] Colonoscopy (10 Years) Discontinued 08/28/2024 PHQ-2 (Physician [place]) Completed 01/24/2025 Meningococcal B Vaccine Aged Out [...] Magallanes, RN Medical Devices Implanted Type Area Education Spec Device Identifier Shelf Expiration Date Model / Serial / Lot Cup Acetabular Depuy 50mm - [id number] Implanted:Qt y: 1 on 04/08/2021 by Geronimo Hurd MD at [facility] Hip Components Right: Acetabulum DEPUY [id number] 02/24/2031 [id number] / / [id number] Liner Depuy Acet Altrx Neut 32 X 50 - [id number] Implanted:Qt y: 1 on 04/08/2021 by Geronimo Hurd MD at [facility] Hip Components Right: Acetabulum DEPUY [id number] 02/24/2026 [id number] / / [id number] Actis Duofix Hip Prosthesis Implanted:Qt y: 1 on 04/08/2021 by Geronimo Hurd MD at [facility] Hip Components Right: Femur DEPUY OR[employer]OP[employer] INC - A GABRIELLE & GABRIELLE [id number] 01/24/2030 1010-10-30 0 / / [id number] Head Depuy Femoral Delta 32mm +1 - [id number] Implanted:Qt y: 1 on 04/08/2021 by Geronimo Hurd MD at [facility] Hip Components Right: Femur DEPUY [id number] 02/24/2026 [id number] / / [id number] Screw [place] Depuy 6.5 X 20mm - [id number] Implanted:Qt y: 1 on 04/08/2021 by Geronimo Hurd MD at [facility] Screw Right: Acetabulum DEPUY [id number] 01/24/2031 [id number] / / [id number] Screw [place] Depuy 6.5 X 20mm - [id number] Implanted:Qt y: 1 on 04/08/2021 by Geronimo Hurd MD at [facility] Screw Right: Acetabulum DEPUY [id number] 10/26/2029 [id number] / / [id number] Insurance Advance Directives * Full Code (Latest Code Status on File) Date Activated Date Inactivated Comments 04/29/2021 8:06 AM 08/28/2024 6:33 AM * Full Code Date Activated Date Inactivated Comments 04/08/2021 10:42 AM 04/10/2021 4:38 PM Care Teams Computer Game Tester Relationship Specialty Start Date End Date Jonathan Carreon MD [address] [place] [address] PCP - General INTERNAL MEDICINE 12/30/20
== END 2025-03-26 08:14 | disposition home or self-care (01) ==
LOC: CHSIMG 08:14
PROVIDERS: PCP Internal Medicine; Visit Provider Internal Medicine
DX: R07.9 Chest pain, unspecified (principal); R10.11 Right upper quadrant pain
CPT/HCPCS: 76705

== ENCOUNTER 2025-03-28 11:19 | Outpatient (CLI) | payer MEDICARE, SELFPAY ==
--- NOTE | ~2025-03-28 | NM_ITS ---
History: Right upper quadrant pain Interpretation: Following intravenous administration of 6.5 mCi. of Technetium-Mebrofenin, serial kelsey ges obtained reveal prompt concentration by the liver which is normal in size and without any focal a bnormalities. There is normal excretion from the liver. The gallbladder and small bowel are visuali zed by 60 minutes. At 60 minutes the patient intravenously received 0.02 mcg/kg of CCK and 30 cc normal saline delivered by palm over 60 minutes. The patient was imaged for approximately the next 40 minutes. Regions of in terest were drawn about the gallbladder and background and gallbladder ejection fraction calculated. The gallbladder ejection fraction measures 78%. ( GBEF will measure > or = 49%, in 95% of normals. GBEF will measure > or= 38% in 99% of normals ) Impression: Normal hepatobiliary scan. No evidence of cystic duct or common bile duct obstruction. This effecti vely excludes acute cholecystitis. Normal gallbladder ejection fraction of 78%. Deep et al.,Sincalide-Stimulated Cholescintigraphy: A Multicenter Investigation to Determine Opti mal Infusion Methodology and Gallbladder Ejection Fraction Normal Values. JNM. Vol 51. No.2. Dec 2009 . Reviewed, dictated and finalized at location . Impression: Normal hepatobiliary scan. No evidence of cystic duct or common bile duct obst ruction. This effectively excludes acute cholecystitis. Normal gallbladder ejection fraction of 78%. Deep et al.,Sincalide-Stimulated Cholescintigraphy: A Multicenter Investiga tion to Determine Optimal Infusion Methodology and Gallbladder Ejection Fractio n Normal Values. JNM. Vol 51. No.2. Dec 2009.
--- OUTSIDE RECORDS SUMMARY | 2025-03-29 12:41 | XMS_ITS | Clinical Summary ---
Author Organization [facility] Address [address] [place] [address] Care Team Providers Care Loss Claim Clerk Name Role Phone Jonathan Carreon MD Primary Care Provider [phone] Allergies No known active allergies Medications citalopram [...] Department Care Team Description 01/24/2025 1:00 PM WARPING MILL OPERATOR Office Visit [facility] [address] [address] MD Follow Up [...] Comments Blood Pressure 122/74 01/24/2025 12:55 PM WARPING MILL OPERATOR Pulse 74 01/24/2025 12:55 PM WARPING MILL OPERATOR Temperature 36.7 C (98 F) 01/24/2025 12:55 PM WARPING MILL OPERATOR Respiratory Rate 18 01/24/2025 12:55 PM WARPING MILL OPERATOR Oxygen Saturation 97% 01/24/2025 12:55 PM WARPING MILL OPERATOR Inhaled Oxygen Concentration - - Weight 64.9 kg (143 lb) 01/24/2025 12:55 PM WARPING MILL OPERATOR Height 152.4 cm (5') 01/24/2025 12:55 PM WARPING MILL OPERATOR Body Mass Index 27.93 01/24/2025 12:55 PM WARPING MILL OPERATOR Plan of Treatment Health Maintenance Due Date [...] Colonoscopy (10 Years) Discontinued 08/28/2024 PHQ-2 (Physician [place]) Completed 01/24/2025 Meningococcal B Vaccine Aged Out [...] Magallanes, RN Medical Devices Implanted Type Area Abap Developer Device Identifier Shelf Expiration Date Model / Serial / Lot Cup Acetabular Depuy 50mm - [id number] Implanted:Qt y: 1 on 04/08/2021 by Geronimo Hurd MD at [facility] Hip Components Right: Acetabulum DEPUY [id number] 02/24/2031 [id number] / / [id number] Liner Depuy Acet Altrx Neut 32 X 50 - [id number] Implanted:Qt y: 1 on 04/08/2021 by Geronimo Hurd MD at [facility] Hip Components Right: Acetabulum DEPUY [id number] 02/24/2026 [id number] / / [id number] Actis Duofix Hip Prosthesis Implanted:Qt y: 1 on 04/08/2021 by Geronimo Hurd MD at [facility] Hip Components Right: Femur DEPUY OR[employer] INC - A GABRIELLE & GABRIELLE [id number] 01/24/2030 1010-10-30 0 / / [id number] Head Depuy Femoral Delta 32mm +1 - [id number] Implanted:Qt y: 1 on 04/08/2021 by Geronimo Hurd MD at [facility] Hip Components Right: Femur DEPUY [id number] 02/24/2026 [id number] / / [id number] Screw [place] Depuy 6.5 X 20mm - [id number] Implanted:Qt y: 1 on 04/08/2021 by Geronimo Hurd MD at [facility] Screw Right: Acetabulum DEPUY [id number] 01/24/2031 [id number] / / [id number] Screw [place] Depuy 6.5 X 20mm - [id number] Implanted:Qt y: 1 on 04/08/2021 by Geronimo Hurd MD at [facility] Screw Right: Acetabulum DEPUY [id number] 10/26/2029 [id number] / / [id number] Insurance Advance Directives * Full Code (Latest Code Status on File) Date Activated Date Inactivated Comments 04/29/2021 8:06 AM 08/28/2024 6:33 AM * Full Code Date Activated Date Inactivated Comments 04/08/2021 10:42 AM 04/10/2021 4:38 PM Care Teams Loss Claim Clerk Relationship Specialty Start Date End Date Jonathan Carreon MD [address] [place] [address] PCP - General INTERNAL MEDICINE 12/30/20
--- OUTSIDE RECORDS SUMMARY | 2025-03-29 12:41 | XMS_ITS | Encounter Summary ---
Author Organization [facility] Address [facility] [place] [address] Care Team Providers Care Sales Hunter Name Role Phone Jonathan Carreon MD Primary Care Provider [phone] Encounter Details Date Type Department Care Team (Late st Contact Info) Description 03/09/2021 Prep for Procedure [place] Pre-Admission Testing [address] [place], [place] [id number] Geronimo Hurd MD [address] [place] [address] [phone] Social History Tobacco Use Types Packs/Day Years [...] DETECTED NOT DETECTED 04/06/2021 2:50 PM CDT [facility] Comment: A Not Detected (negative) test result [...] providers and patients using the following websites: https://www.Storwize.Sevence/home/Covid-19/HCP/NAAT/fact-sheet2 https://www.Storwize.Sevence/home/Covid-19/Patients/NAAT/ fact-sheet2 This test has been authorized by the FDA under an Emergency Use Authorization (EUA) for use by authorized laboratories. Due to the current public health emergency, [facility] is receiving a high volume of samples [...] about COVID-19 can be found at the [employer] website: www.[employer]HTER Interactive.Sevence/Covid19. Test performed at [facility] [place] [address] [place] [address] Director: LINK LEACH DO,MPH FIRST TEST NO 04/05/2021 10:33 AM CDT [facility] EMPLOYED IN HEALTHCARE NO 04/05/2021 10:33 AM CDT [facility] SYMPTOMATIC DEFINED BY CDC NO 04/05/2021 10:33 AM CDT [facility] DATE OF SYMPTOM ONSET NO 04/05/2021 10:52 AM CDT [facility] HOSPITALIZATION STATUS NO 04/05/2021 10:33 AM CDT [facility] PATIENT IN ICU NO 04/05/2021 10:33 AM CDT [facility] RES[facility] OF [facility] NO 04/05/2021 10:33 AM CDT [facility] NO 04/05/2021 10:52 AM CDT [facility] PATIENT'S RACE WHITE OR 04/05/2021 10:33 AM CDT [facility] ETHNICITY NONHISPANIC 04/05/2021 10:33 AM CDT [facility] SOURCE (QST) NASOPHARYNGEAL SWAB 04/05/2021 10:33 AM CDT [facility] NASOPHARYNGEAL SWAB / Unknown 04/05/2021 9:00 AM CDT us Geronimo Hurd MD MICROBIOLOGY - GENERAL ORDER FLY Final Result [facility] [address] [place] [address], [place] [phone] [facility] [address] [place] [address], [place] documented in this encounter Visit Diagnoses Diagnosis Preop examination- Primary Preoperative examination, unspecified documented in this encounter Additional Health Concerns Infection Onset Date Last Indicated Resolved Time COVID-19 Rule Out 04/05/2021 04/05/2021 04/06/2021 2:50 PM CDT documented as of this encounter Care Teams Sales Hunter Relationship Specialty Start Date End Date Jonathan Carreon MD [address] [place] [address] PCP - General INTERNAL MEDICINE 12/30/20 documented as of this encounter
== END 2025-03-28 11:20 | disposition home or self-care (01) ==
PROVIDERS: PCP Internal Medicine; Visit Provider Internal Medicine
DX: R10.11 Right upper quadrant pain (principal)
CPT/HCPCS: 78227; A9537; J2805

== ENCOUNTER 2025-03-31 08:07 | Outpatient (CLI) | payer MEDICARE, SELFPAY ==
--- NOTE | 2025-03-31 08:14 | EST_ITS ---
Patient Info Name: Seble Nunez Age: 79 years : 1945 Gender: Female Ht: 65 in Wt: 147 lbs BSA: 1.76 m2 HR: 63 bpm BP: 140 / 68 mmHg Heart Rhythm: Sinus Rhythm Technical Quality: Good Exam Date: 03/31/2025 9:27 AM Exam Location: Echo Lab Patient Status: Outpatient Admit Date: 03/31/2025 Staff Ordering Physician: Jonathan Carreon MD Attending Provider: Jonathan Carreon MD Exam Type: CA stress mary w NM Study Info A regadenoson stress test was performed. History/Risk Factors Dyslipidemia: Yes Summary 1. 1. Negative lexiscan stress test for ischemic ST changes by ECG criteria. 2. 2. Stable hemodynamics throughout the test. 3. 3. Nuclear scan to follow and will be reported separately. Please correlate with it. Protocol: LEXISCAN Stress ECG Details Stage: REST Duration (min): 2 min : 31 sec HR (bpm): 62 SBP (mmHg): 140 DBP (mmHg): 68 Stage: REST Duration (min): 17 min : 3 sec HR (bpm): 64 SBP (mmHg): 140 DBP (mmHg): 68 Stage: STAGE 1 Duration (min): 0 min : 29 sec HR (bpm): 66 SBP (mmHg): 140 DBP (mmHg): 68 Stage: RECOVERY Duration (min): 0 min : 30 sec HR (bpm): 86 SBP (mmHg): 140 DBP (mmHg): 68 Stage: RECOVERY Duration (min): 1 min : 30 sec HR (bpm): 103 SBP (mmHg): 140 DBP (mmHg): 68 Stage: RECOVERY Duration (min): 2 min : 30 sec HR (bpm): 101 SBP (mmHg): 126 DBP (mmHg): 51 Stage: RECOVERY Duration (min): 3 min : 30 sec HR (bpm): 97 SBP (mmHg): 126 DBP (mmHg): 54 Stage: RECOVERY Duration (min): 4 min : 30 sec HR (bpm): 93 SBP (mmHg): 120 DBP (mmHg): 55 Stage: RECOVERY Duration (min): 5 min : 30 sec HR (bpm): 88 SBP (mmHg): 108 DBP (mmHg): 56 Stage: RECOVERY Duration (min): 6 min : 25 sec HR (bpm): 84 SBP (mmHg): 110 DBP (mmHg): 58 Rest HR: 64 bpm Peak HR: 105 bpm Rest Sys BP: 140 mmHg Peak Sys BP: 126 mmHg Max Pred HR: 142 bpm % Max Pred HR: 74 % Target HR: 121 bpm Max RPP: 13,230 bpm*mmHg BP Response: Normal blood pressure response Termination Reason: Completed Protocol Cardiac Symptoms: None Total Time: 0 min : 29 sec Rest North BP: 68 mmHg Peak North BP: 54 mmHg Total Dose: 0.4 mg Resting ECG Normal sinus rhythm. Stress ECG No abnormal ST/T wave changes. Arrhythmias No arrhythmias were observed during the examination. Report Signatures
--- OUTSIDE RECORDS SUMMARY | 2025-03-31 08:14 | XMS_ITS | Encounter Summary ---
Author Organization [facility] Address [facility] [place] [address] Care Team Providers Care Racing Driver Name Role Phone Jonathan Carreon MD Primary Care Provider [phone] Encounter Details Date Type Department Care Team (Late st Contact Info) Description 03/09/2021 Prep for Procedure [facility] Pre-Admission Testing [address] [place], [place] [id number] Geronimo Hurd MD [address] [place] [phone] Social History Tobacco Use Types Packs/Day Years [...] DETECTED NOT DETECTED 04/06/2021 2:50 PM CDT [facility] Comment: A Not Detected [...] providers and patients using the following websites: https://www.My[employer]Company.PT PAL/home/Covid-19/HCP/NAAT/fact-sheet2 https://www.My[employer]Company.PT PAL/home/Covid-19/Patients/NAAT/ fact-sheet2 This test has been authorized by the FDA under an Emergency Use Authorization (EUA) for use by authorized laboratories. Due to the current public health emergency, [facility] is receiving a high volume of samples [...] about COVID-19 can be found at the [facility] website: www.Kinvey.PT PAL/Covid19. Test performed at [facility] [place] [address] [place] [address] Director: LINK LEACH DO,MPH FIRST TEST NO 04/05/2021 10:33 AM CDT [facility] EMPLOYED IN HEALTHCARE NO 04/05/2021 10:33 AM CDT [facility] SYMPTOMATIC DEFINED BY CDC NO 04/05/2021 10:33 AM CDT [facility] DATE OF SYMPTOM ONSET NO 04/05/2021 10:52 AM CDT [facility] HOSPITALIZATION STATUS NO 04/05/2021 10:33 AM CDT [facility] PATIENT IN ICU NO 04/05/2021 10:33 AM CDT [facility] RESIDENT OF [facility] NO 04/05/2021 10:33 AM CDT [facility] NO 04/05/2021 10:52 AM CDT [facility] PATIENT'S RACE WHITE OR 04/05/2021 10:33 AM CDT [facility] ETHNICITY NONHISPANIC 04/05/2021 10:33 AM CDT [facility] SOURCE (QST) NASOPHARYNGEAL SWAB 04/05/2021 10:33 AM CDT [facility] NASOPHARYNGEAL SWAB / Unknown 04/05/2021 9:00 AM CDT us Geronimo Hurd MD MICROBIOLOGY - GENERAL ORDER FLY Final Result [facility] [address] [place] [address], [place] [phone] [facility] [address] [place] [address], [place] documented in this encounter Visit Diagnoses Diagnosis Preop examination- Primary Preoperative examination, unspecified documented in this encounter Additional Health Concerns Infection Onset Date Last Indicated Resolved Time COVID-19 Rule Out 04/05/2021 04/05/2021 04/06/2021 2:50 PM CDT documented as of this encounter Care Teams Racing Driver Relationship Specialty Start Date End Date Jonathan Carreon MD [address] [place] [address] PCP - General INTERNAL MEDICINE 12/30/20 documented as of this encounter
--- OUTSIDE RECORDS SUMMARY | 2025-03-31 08:14 | XMS_ITS | Clinical Summary ---
Author Organization [facility] Address [address] [place] [address] Care Team Providers Care Mail Caller Name Role Phone Jonathan Carreon MD Primary Care Provider [phone] Allergies No known active allergies Medications citalopram [...] Department Care Team Description 01/24/2025 1:00 PM FASHION CONSULTANT Office Visit [facility] [address] [address] MD Follow Up [...] Comments Blood Pressure 122/74 01/24/2025 12:55 PM FASHION CONSULTANT Pulse 74 01/24/2025 12:55 PM FASHION CONSULTANT Temperature 36.7 C (98 F) 01/24/2025 12:55 PM FASHION CONSULTANT Respiratory Rate 18 01/24/2025 12:55 PM FASHION CONSULTANT Oxygen Saturation 97% 01/24/2025 12:55 PM FASHION CONSULTANT Inhaled Oxygen Concentration - - Weight 64.9 kg (143 lb) 01/24/2025 12:55 PM FASHION CONSULTANT Height 152.4 cm (5') 01/24/2025 12:55 PM FASHION CONSULTANT Body Mass Index 27.93 01/24/2025 12:55 PM FASHION CONSULTANT Plan of Treatment Health Maintenance Due Date [...] Colonoscopy (10 Years) Discontinued 08/28/2024 PHQ-2 (Physician [place]) Completed 01/24/2025 Meningococcal B Vaccine Aged Out [...] Magallanes, RN Medical Devices Implanted Type Area Trolley Cleaner Device Identifier Shelf Expiration Date Model / Serial / Lot Cup Acetabular Depuy 50mm - [id number] Implanted:Qt y: 1 on 04/08/2021 by Geronimo Hurd MD at [facility] Hip Components Right: Acetabulum DEPUY [id number] 02/24/2031 [id number] / / [id number] Liner Depuy Acet Altrx Neut 32 X 50 - [id number] Implanted:Qt y: 1 on 04/08/2021 by Geronimo Hurd MD at [facility] Hip Components Right: Acetabulum DEPUY [id number] 02/24/2026 [id number] / / [id number] Actis Duofix Hip Prosthesis Implanted:Qt y: 1 on 04/08/2021 by Geronimo Hurd MD at [facility] Hip Components Right: Femur DEPUY [employer] - A GABRIELLE & GABRIELLE [id number] 01/24/2030 1010-10-30 0 / / [id number] Head Depuy Femoral Delta 32mm +1 - [id number] Implanted:Qt y: 1 on 04/08/2021 by Geronimo Hurd MD at [facility] Hip Components Right: Femur DEPUY [id number] 02/24/2026 [id number] / / [id number] Screw L[place] Depuy 6.5 X 20mm - [id number] Implanted:Qt y: 1 on 04/08/2021 by Geronimo Hurd MD at [facility] Screw Right: Acetabulum DEPUY [id number] 01/24/2031 [id number] / / [id number] Screw [place]inn Depuy 6.5 X 20mm - [id number] Implanted:Qt y: 1 on 04/08/2021 by Geronimo Hurd MD at [facility] Screw Right: Acetabulum DEPUY [id number] 10/26/2029 [id number] / / [id number] Insurance Advance Directives * Full Code (Latest Code Status on File) Date Activated Date Inactivated Comments 04/29/2021 8:06 AM 08/28/2024 6:33 AM * Full Code Date Activated Date Inactivated Comments 04/08/2021 10:42 AM 04/10/2021 4:38 PM Care Teams Mail Caller Relationship Specialty Start Date End Date Jonathan Carreon MD [address] [place] [address] PCP - General INTERNAL MEDICINE 12/30/20
--- NOTE | 2025-03-31 12:57 | WPDCARIOSTRE ---
Nuclear Stress Test INDICATIONS Indications: Chest pain PROCEDURE Procedure Performed: Myocardial Perf Spect-Multi Procedure: Patient underwent a lexiscan stress test and immediately was injected with 31.3 mCi of cardiolyte. Multiple tomographic images were obtained. These are of good quality. No perfusion defects with stress imaging. A separate resting images were obtained after patient was injected with 10.4 mCi of cardiolyte. Multiple tomographic images were obtained. These are of good quality. No perfusion defects with rest imaging. CONCLUSION Conclusion: 1. Normal myocardial perfusion imaging demonstrating no perfusion defects with stress or rest imaging. 2. No evidence of reversible ischemia. 3. Left ventriculogram demonstrates hyperdynamic measured ejection fraction of 80% with no wall motion abnormalities. 4. TID score 0.92 is not elevated.
== END 2025-03-31 08:08 | disposition home or self-care (01) ==
LOC: CHSIMG 08:09
PROVIDERS: PCP Internal Medicine; Visit Provider Internal Medicine
DX: R06.02 Shortness of breath (principal); R07.9 Chest pain, unspecified
CPT/HCPCS: 78452; 93017; A9502; J2785

== ENCOUNTER 2025-04-22 09:08 | Outpatient (CLI) | payer MEDICARE, SELFPAY ==
--- NOTE | ~2025-04-22 | XR_ITS ---
EXAMINATION: XR abdomen obstructive series DATE: 04/22/2025 09:31 INDICATION: Constipation TECHNIQUE: Supine and upright views of the abdomen. FINDINGS: 02/24/2025 The visualized lung parenchyma is normal.. There is a bowel gas pattern. Gas and stool are seen throu ghout the colon to the level of the rectum. There is no free air. Stable dense calcification left up per abdomen, likely benign. Partially visualized right hip arthroplasty noted. IMPRESSION: 1. No acute abdominal abnormality. Reviewed, dictated and finalized at location A.
== END 2025-04-22 09:09 | disposition home or self-care (01) ==
PROVIDERS: PCP Internal Medicine; Visit Provider Internal Medicine
DX: K59.00 Constipation, unspecified (principal)
CPT/HCPCS: 74019

== ENCOUNTER 2025-07-19 07:17 | Outpatient (CLI) | payer MEDICARE, SELFPAY ==
--- OUTSIDE RECORDS SUMMARY | 2025-07-19 07:21 | XMS_ITS | Encounter Summary ---
Author Organization [facility] Address [facility] [place] [address] Care Team Providers Care City Auditor Name Role Phone Jonathan Carreon MD Primary Care Provider [phone] Encounter Details Date Type Department Care Team (Late st Contact Info) Description 03/09/2021 Prep for Procedure [facility] Pre-Admission Testing [address] [place], [place] [id number] Geronimo Hurd MD [address] [place] [phone] Social History Tobacco Use Types Packs/Day Years [...] DETECTED NOT DETECTED 04/06/2021 2:50 PM CDT [facility] Comment: A Not Detected (negative) test [...] providers and patients using the following websites: https://www.[employer]/home/Covid-19/HCP/NAAT/fact-sheet2 https://www.[employer]/home/Covid-19/Patients/NAAT/ fact-sheet2 This test has been authorized by the FDA under an Emergency Use Authorization (EUA) for use by authorized laboratories. Due to the current public health emergency, [facility] is receiving a high volume of samples [...] about COVID-19 can be found at the [employer] website: www.[employer]/Covid19. Test performed at [facility] [place] [address] [place] [address] Director: LINK LEACH DO,MPH FIRST TEST NO 04/05/2021 10:33 AM CDT [facility] EMPLOYED IN HEALTHCARE NO 04/05/2021 10:33 AM CDT [facility] SYMPTOMATIC DEFINED BY CDC NO 04/05/2021 10:33 AM CDT [facility] DATE OF SYMPTOM ONSET NO 04/05/2021 10:52 AM CDT [facility] HOSPITALIZATION STATUS NO 04/05/2021 10:33 AM CDT [facility] PATIENT IN ICU NO 04/05/2021 10:33 AM CDT [facility] RESIDENT OF [facility] NO 04/05/2021 10:33 AM CDT [facility] NO 04/05/2021 10:52 AM CDT [facility] PATIENT'S RACE WHITE OR 04/05/2021 10:33 AM CDT [facility] ETHNICITY NONHISPANIC 04/05/2021 10:33 AM CDT [facility] SOURCE (QST) NASOPHARYNGEAL SWAB 04/05/2021 10:33 AM CDT [facility] NASOPHARYNGEAL SWAB / Unknown 04/05/2021 9:00 AM CDT us Geronimo Hurd MD MICROBIOLOGY - GENERAL ORDER FLY Final Result [facility] [address] [place] [address], [place] [phone] [facility] [address] [place] [address], [place] documented in this encounter Visit Diagnoses Diagnosis Preop examination- Primary Preoperative examination, unspecified documented in this encounter Additional Health Concerns Infection Onset Date Last Indicated Resolved Time COVID-19 Rule Out 04/05/2021 04/05/2021 04/06/2021 2:50 PM CDT documented as of this encounter Care Teams City Auditor Relationship Specialty Start Date End Date Jonathan Carreon MD [address] [place] [address] PCP - General INTERNAL MEDICINE 12/30/20 documented as of this encounter
--- OUTSIDE RECORDS SUMMARY | 2025-07-19 07:21 | XMS_ITS | Clinical Summary ---
Author Organization [facility] Address [address] [place] [address] Care Team Providers Care Financial Adviser Name Role Phone Jonathan Carreon MD Primary Care Provider [phone] Allergies No known active allergies Medications citalopram [...] Date Osteoarthritis of right hip 04/08/2021 04/09/2021 Family History Medical History Relation Comments No [...] Comments Blood Pressure 122/74 01/24/2025 12:55 PM TOOL TROUBLE SHOOTER Pulse 74 01/24/2025 12:55 PM TOOL TROUBLE SHOOTER Temperature 36.7 C (98 F) 01/24/2025 12:55 PM TOOL TROUBLE SHOOTER Respiratory Rate 18 01/24/2025 12:55 PM TOOL TROUBLE SHOOTER Oxygen Saturation 97% 01/24/2025 12:55 PM TOOL TROUBLE SHOOTER Inhaled Oxygen Concentration - - Weight 64.9 kg (143 lb) 01/24/2025 12:55 PM TOOL TROUBLE SHOOTER Height 152.4 cm (5') 01/24/2025 12:55 PM TOOL TROUBLE SHOOTER Body Mass Index 27.93 01/24/2025 12:55 PM TOOL TROUBLE SHOOTER Plan of Treatment Health Maintenance Due Date Last Done Comments Hepatitis C 1963 DTaP, Tdap and Td Vaccines ( 1 - Tdap) 1964 Annual Medicare Wellness Visit 2011 Dexa Scan (General) 2011 Pneumococcal Vaccine: 50+ Years (2 of 2 - PPSV23) 09/11/2016 09/11/2015 RSV Immunization or 60+ Years (1 - 1-dose 75+ series) 2021 COVID-19 Vaccine (2023-2 5 season) 2024 01/20/2021, 12/30/2020 Zoster Vaccines Completed 08/04/2019, 06/01/2019 Colorectal Cancer Screening Colonoscopy (10 Years) Discontinued 08/28/2024 PHQ-2 (Physician [place]) Completed 01/24/2025 Meningococcal B Vaccine Aged Out [...] perform ADLs independently General No Sherrie Magallanes, GABRIELLA Medical Devices Implanted Type Area Director And Professor Device Identifier Shelf Expiration Date Model / Serial / Lot Cup Acetabular Depuy 50mm - [id number] Implanted:Qt y: 1 on 04/08/2021 by Geronimo Hurd MD at [facility] Hip Components Right: Acetabulum DEPUY [id number] 02/24/2031 [id number] / / [id number] Liner Depuy Acet Altrx Neut 32 X 50 - [id number] Implanted:Qt y: 1 on 04/08/2021 by Geronimo Hurd MD at [facility] Hip Components Right: Acetabulum DEPUY [id number] 02/24/2026 [id number] / / [id number] Actis Duofix Hip Prosthesis Implanted:Qt y: 1 on 04/08/2021 by Geronimo Hurd MD at [facility] Hip Components Right: Femur DEPUY [employer] - A GABRIELLE & GABRIELLE [id number] 01/24/2030 1010-10-30 0 / / [id number] Head Depuy Femoral Delta 32mm +1 - [id number] Implanted:Qt y: 1 on 04/08/2021 by Geronimo Hurd MD at [facility] Hip Components Right: Femur DEPUY [id number] 02/24/2026 [id number] / / [id number] Screw [place] Depuy 6.5 X 20mm - [id number] Implanted:Qt y: 1 on 04/08/2021 by Geronimo Hurd MD at [facility] Screw Right: Acetabulum DEPUY [id number] 01/24/2031 [id number] / / [id number] Screw [place] Depuy 6.5 X 20mm - [id number] Implanted:Qt y: 1 on 04/08/2021 by Geronimo Hurd MD at [facility] Screw Right: Acetabulum DEPUY [id number] 10/26/2029 [id number] / / [id number] Insurance [id number] Advance Directives * Full Code (Latest Code Status on File) Date Activated Date Inactivated Comments 04/29/2021 8:06 AM 08/28/2024 6:33 AM * Full Code Date Activated Date Inactivated Comments 04/08/2021 10:42 AM 04/10/2021 4:38 PM Care Teams Financial Adviser Relationship Specialty Start Date End Date Jonathan Carreon MD [address] [place] [address] PCP - General INTERNAL MEDICINE 12/30/20
[2025-07-19 07:48] LABS: Hematocrit 39.1 % (35.0-42.0); Hemoglobin 12.1 g/dL (11.7-13.8); Immature Granulocyte Percent A 0.4 % (0.0-0.0); Lymphocytes Absolute Auto 2.59 K/mm3 (1.10-4.50); Mean Corpuscular HGB Conc 30.9 g/dL (32-36); Mean Corpuscular Hemoglobin 27.4 pg (27.0-31.0); Mean Corpuscular Volume 88.5 fL (78.0-102.0); Nucleated Red Blood Cells Absolute Auto 0.00 K/mm3 (0.00-0.00); Nucleated Red Blood Cells Perc 0.0 % (0-0.0); Platelet Count Result 323 K/mm3 (150-420); Red Blood Count 4.42 M/mm3 (4.20-5.40); White Blood Count 7.0 K/mm3 (4.8-10.8)
[2025-07-19 08:01] LABS: Add Urine Microscopic? YES; Appearance Urine Clear (Clear); Glucose Urine UA Negative (Negative); Leukocyte Esterase Ur Trace (Negative); Nitrate Urine Negative (Negative); Specific Grav Ur 1.015 (1.010-1.020)
[2025-07-19 08:11] LABS: Alanine Aminotransferase 19 U/L (6-35); Albumin Level 4.5 g/dL (3.5-5.1); Alkaline Phosphatase 45 U/L (38-126); Anion Gap 7 mmol/L (4-12); Aspartate Amino Transferase 26 U/L (14-36); Bilirubin,Total 0.4 mg/dL (0.2-1.3); Blood Urea Nitrogen 16 mg/dL (7-17); Calcium 9.7 mg/dL (8.4-10.2); Carbon Dioxide 29 mmol/L (22-30); Chloride 106 mmol/L (98-107); Cholesterol 217 mg/dL (0-200); Creatine Kinase 89 U/L (30-135); Estimated Glomerular Filt Rate > 60; Glucose 97 mg/dL (65-110); HDL Direct 56 mg/dL; Magnesium 2.2 mg/dL (1.6-2.3); Osmolality Calculated 295 mOsm/kg (285-295); Potassium 4.8 mmol/L (3.4-5.0); Sodium 142 mmol/L (137-145); Total Protein 6.6 g/dL (6.3-8.2); Triglycerides 214 mg/dL (<150)
[2025-07-19 08:28] LABS: Free T3 2.87 pg/mL (2.18-3.98); Free T4 Free Thyroxine 0.82 ng/dL (0.78-2.19)
[2025-07-19 08:42] LABS: Thyroid Stimulating Hormone 3.300 uIU/mL (0.465-4.680)
== END 2025-07-19 07:18 | disposition home or self-care (01) ==
LOC: CHSLAB 07:19
PROVIDERS: PCP Internal Medicine; Visit Provider Internal Medicine
DX: M81.0 Age-related osteoporosis without current pathological fracture (principal); E03.4 Atrophy of thyroid (acquired); E78.2 Mixed hyperlipidemia; R53.83 Other fatigue; R10.84 Generalized abdominal pain
CPT/HCPCS: 36415; 80053; 80061; 81001; 82550; 83735; 84439; 84443; 84481; 85025

== ENCOUNTER 2025-07-31 08:17 | Outpatient (CLI) | payer MEDICARE, SELFPAY ==
--- OUTSIDE RECORDS SUMMARY | 2025-07-31 08:25 | XMS_ITS | Patient Health Record ---
Author Organization [facility] Address [address] [place], [place] [address] Care Team Providers Care Assembler Cards And Announcements Name Role Phone VASILE BUENO Unavailable [phone] Jonathan Carreon Unavailable Unavailable Reason For Referral No Information Medications Medication SIG (Take, Route, Frequency, Duration) Notes Start Date End Date Status nabumetone 500 MG Oral Tablet [Relafen] ORAL nabumetone 500 MG Oral Tablet [Relafen]Original Medicationnabumetone 500 MG Oral Tablet [Relafen] *Reorder from [employer] for eRx and Interaction Alerts* 02/13/2015 Active Plan Of Treatment No Information Insurance Providers Payer Name Payer Address Payer Phone Subscriber Number Group Number Insured Name Patient Relationship to Insured Coverage Start Date Coverage End Date Medicare Part B [facility] [address] [place] [phone] [id number] ABHIJEET MIX Self - patient is the insured [place] [employer] [address] [place] [address] [id number] ABHIJEET MIX Self - patient is the insured
--- OUTSIDE RECORDS SUMMARY | 2025-07-31 08:25 | XMS_ITS | Clinical Summary ---
Author Organization [facility] Address [address] [place] [address] Care Team Providers Care Vp Digital Marketing Name Role Phone Jonathan Carreon MD Primary Care Provider [phone] Allergies No known active allergies Medications citalopram [...] Comments Blood Pressure 122/74 01/24/2025 12:55 PM SENIOR ORACLE DEVELOPER Pulse 74 01/24/2025 12:55 PM SENIOR ORACLE DEVELOPER Temperature 36.7 C (98 F) 01/24/2025 12:55 PM SENIOR ORACLE DEVELOPER Respiratory Rate 18 01/24/2025 12:55 PM SENIOR ORACLE DEVELOPER Oxygen Saturation 97% 01/24/2025 12:55 PM SENIOR ORACLE DEVELOPER Inhaled Oxygen Concentration - - Weight 64.9 kg (143 lb) 01/24/2025 12:55 PM SENIOR ORACLE DEVELOPER Height 152.4 cm (5') 01/24/2025 12:55 PM SENIOR ORACLE DEVELOPER Body Mass Index 27.93 01/24/2025 12:55 PM SENIOR ORACLE DEVELOPER Plan of Treatment Health Maintenance Due Date [...] Colonoscopy (10 Years) Discontinued 08/28/2024 PHQ-2 (Physician [place]) Completed 01/24/2025 Meningococcal B Vaccine Aged Out [...] Magallanes, GABRIELLA Medical Devices Implanted Type Area Service Planner Device Identifier Shelf Expiration Date Model / Serial / Lot Cup Acetabular Depuy 50mm - [id number] Implanted:Qt y: 1 on 04/08/2021 by Geronimo Hurd MD at [facility] Hip Components Right: Acetabulum DEPUY [id number] 02/24/2031 [id number] / / [id number] Liner Depuy Acet Altrx Neut 32 X 50 - [id number] Implanted:Qt y: 1 on 04/08/2021 by Geronimo Hurd MD at [facility] Hip Components Right: Acetabulum DEPUY [id number] 02/24/2026 [id number] / / [id number] Actis Duofix Hip Prosthesis Implanted:Qt y: 1 on 04/08/2021 by Geronimo Hurd MD at [facility] Hip Components Right: Femur DEPUY OR[employer] INC - A GABRIELLE & GABRIELLE [id number] 01/24/2030 1010-10-30 0 / / [id number] Head Depuy Femoral Delta 32mm +1 - [id number] Implanted:Qt y: 1 on 04/08/2021 by Geronimo Hurd MD at [facility] Hip Components Right: Femur DEPUY [id number] 02/24/2026 [id number] / / [id number] Screw [place] Depuy 6.5 X 20mm - [id number] Implanted:Qt y: 1 on 04/08/2021 by Geronimo Hurd MD at [facility] Screw Right: Acetabulum DEPUY [id number] 01/24/2031 [id number] / / [id number] Screw [place] Depuy 6.5 X 20mm - [id number] Implanted:Qt y: 1 on 04/08/2021 by Geronimo Hurd MD at [facility] Screw Right: Acetabulum DEPUY [id number] 10/26/2029 [id number] / / [id number] Insurance [id number] Advance Directives * Full Code (Latest Code Status on File) Date Activated Date Inactivated Comments 04/29/2021 8:06 AM 08/28/2024 6:33 AM * Full Code Date Activated Date Inactivated Comments 04/08/2021 10:42 AM 04/10/2021 4:38 PM Care Teams Vp Digital Marketing Relationship Specialty Start Date End Date Jonathan Carreon MD [address] [place] [address] PCP - General INTERNAL MEDICINE 12/30/20
--- OUTSIDE RECORDS SUMMARY | 2025-07-31 08:25 | XMS_ITS | Encounter Summary ---
Author Organization [facility] Address [facility] [place] [address] Care Team Providers Care Crawler Crane Operator Name Role Phone Jonathan Carreon MD Primary Care Provider Encounter Details Date Type Department Care Team (Late st Contact Info) Description 03/09/2021 Prep for Procedure [facility] Pre-Admission Testing [address] [place], [place] [id number] Geronimo Hurd MD [address] [place] [phone] Social History Tobacco Use Types Packs/Day Years [...] DETECTED NOT DETECTED 04/06/2021 2:50 PM CDT [facility] Comment: A Not Detected (negative) test [...] providers and patients using the following websites: https://www.[employer]/home/Covid-19/HCP/NAAT/fact-sheet2 https://www.[employer]/home/Covid-19/Patients/NAAT/ fact-sheet2 This test has been authorized by the FDA under an Emergency Use Authorization (EUA) for use by authorized laboratories. Due to the current public health emergency, [facility] is receiving a high volume of samples [...] about COVID-19 can be found at the [employer] website: www.[employer]/Covid19. Test performed at [facility] [place] [address] [place] [address] Director: LINK LEACH DO,MPH FIRST TEST NO 04/05/2021 10:33 AM CDT [facility] EMPLOYED [facility] HEALTHCARE NO 04/05/2021 10:33 AM CDT [facility] SYMPTOMATIC DEFINED BY CDC NO 04/05/2021 10:33 AM CDT [facility] DATE OF SYMPTOM ONSET NO 04/05/2021 10:52 AM CDT [facility] HOSPITALIZATION STATUS NO 04/05/2021 10:33 AM CDT [facility] PATIENT IN ICU NO 04/05/2021 10:33 AM CDT [facility] RESIDENT OF [facility] NO 04/05/2021 10:33 AM CDT [facility] NO 04/05/2021 10:52 AM CDT [facility] PATIENT'S RACE WHITE OR 04/05/2021 10:33 AM CDT [facility] ETHNICITY NONHISPANIC 04/05/2021 10:33 AM CDT [facility] SOURCE (QST) NASOPHARYNGEAL SWAB 04/05/2021 10:33 AM CDT [facility] NASOPHARYNGEAL SWAB / Unknown 04/05/2021 9:00 AM CDT us Geronimo Hurd MD MICROBIOLOGY - GENERAL ORDER FLY Final Result [facility] [address] [place] [address], [place] [phone] [facility] [address] [place] [address], [place] documented in this encounter Visit Diagnoses Diagnosis Preop examination- Primary Preoperative examination, unspecified documented in this encounter Additional Health Concerns Infection Onset Date Last Indicated Resolved Time COVID-19 Rule Out 04/05/2021 04/05/2021 04/06/2021 2:50 PM CDT documented as of this encounter Care Teams Crawler Crane Operator Relationship Specialty Start Date End Date Jonathan Carreon MD [address] [place] [address] PCP - General INTERNAL MEDICINE 12/30/20 documented as of this encounter
[2025-07-31 08:39] VITALS: BP 132/67; PULSE 76; RESP 14; TEMP 36.6; O2SAT 97; BMI 26.9
[2025-07-31] MEDS: DENOSUMAB 60 MG/ML SYRINGE SUB-Q (08:42)
== END 2025-07-31 08:18 | disposition home or self-care (01) ==
PROVIDERS: PCP Internal Medicine; Visit Provider Internal Medicine
DX: M81.0 Age-related osteoporosis without current pathological fracture (principal)
CPT/HCPCS: 96372; J0897